=== PATIENT | female | born 1955 | race Caucasian/White ===

== ENCOUNTER 2016-11-10 10:57 | Emergency (ER) | payer MEDICARE, OTHER ==
[2016-11-10 11:10] VITALS: BP 132/72; PULSE 106; RESP 18; TEMP 98.1
[2016-11-10] MEDS ORDERED: predniSONE 20 MG TAB PO STA (11:33)
--- NOTE | 2016-11-10 11:35 | ED ---
General Adult HPI - General Chief complaint: ENT Stated complaint: ear pain Time Seen by Provider: 11/10/16 11:21 Source: patient, RN notes reviewed Mode of arrival: ambulatory Limitations: no limitations - History of Present Illness Initial comments: 60-year-old female presenting for sinus pressure. Patient also states she's had some episodes of disequilibrium where she felt dizzy. She denies any syncope or fall. States she's had chronic issues with her ears in the past with similar symptoms. She denies any rhinorrhea or sinus discharge. She has any fevers or chills. She denies any chest pain or shortness of breath. She is not tried any medications at this time. - Related Data Home Medications Medication Instructions Recorded Confirmed LORazepam [Ativan] 0.5 mg PO DAILY PRN 04/06/14 12/03/15 buPROPion [Wellbutrin] 100 mg PO BID 04/06/14 12/03/15 Amitriptyline HCl 25 mg PO HS 08/30/15 12/03/15 HYDROcodone/APAP 5-325MG [[place] 5] 1 - 2 tab PO Q4HR PRN 12/03/15 12/03/15 Ibuprofen [Motrin] 800 mg PO Q6H PRN 12/03/15 12/03/15 Levothyroxine Sodium [Synthroid] 175 mcg PO DAILY 12/03/15 12/03/15 Mirtazapine [Remeron] 30 mg PO HS 12/03/15 12/03/15 Previous Rx's Medication Instructions Recorded Albuterol Inhaler [Ventolin Hfa 2 puff INHALATION Q6HR PRN #1 10/05/14 Inhaler] inhaler traMADol HCl [Ultram] 50 mg PO Q6H PRN #0 09/05/15 Meclizine [Antivert] 25 - 50 mg PO Q6H PRN #20 tab 12/03/15 Methocarbamol [Robaxin-750] 750 mg PO Q6H PRN #20 tablet 12/03/15 predniSONE 40 mg PO DAILY #14 tab 11/10/16 Allergies Allergy/AdvReac Type Severity Reaction Status Date / Time atorvastatin calcium Allergy Swelling Verified 11/10/16 11:10 [From Lipitor] lidocaine HCl Allergy SKIN Verified 11/10/16 11:10 [From Xylocaine] SWELLS UP @ SITE- AREA PURPLE FOR WEEKS ? CANCER MED Allergy Anaphylaxis Uncoded 11/10/16 11:10 Review of Systems ROS Statement: Those systems with pertinent positive or pertinent negative responses have been documented in the HPI. ROS Other: All systems not noted in ROS Statement are negative. Past Medical History Past Medical History: Hyperlipidemia Additional Past Medical History / Comment(s): 09/04/15 Pt admitted to floor s/p R rotator cuff repair. Other HX: Migraines, C/O pain R shoulder C/O of back pain, has a rash under L breast. History of Any Multi-Drug Resistant Organisms: None Reported Additional Past Surgical History / Comment(s): 09/04/15 R rotator cuff repair. Other surgery: thyroidectomy, ovarian cyst, polyp removed from cervix. Past Psychological History: ADD/ADHD Additional Psychological History / Comment(s): Pt resides with spouse. She is independent. She uses no assistive device. She drives. Smoking Status: Never smoker Past Alcohol Use History: None Reported Past Drug Use History: None Reported General Exam - General Exam Comments Initial Comments: General: Awake and Alert. No acute distress. Does not appear acutely ill. Eyes: [place], EOM intact. No nystagmus. No scleral icterus. HENT: Atraumatic, normocephalic. Mucous membranes moist. Trachea midline. Neck: The neck is supple, there is no tenderness or JVD. Cardiovascular: Regular rate and rhythm. No murmur, rub, or gallop is appreciated. Distal pulses intact. Respiratory: Lungs are clear to auscultation bilaterally. No wheezes, rales, rhonchi. No respiratory distress. Gastrointestinal: Soft, Nontender. No rebound or guarding. Non-distended. No masses or organomegaly noted. No CVA tenderness. Musculoskeletal: No tenderness. Normal ROM. No gross deformity. No strength deficits. Neurological: A&Ox3. CN II-XII grossly intact, There are no obvious motor or sensory deficits. Coordination appears grossly intact. Speech is normal. Skin: Skin is warm and dry and no rashes or lesions are noted. Psychiatric: Cooperative, appropriate mood & affect, normal judgment. Limitations: no limitations Course Vital Signs 11/10/16 11:08 Temperature 98.1 F Pulse Rate 106 H Respiratory 18 Rate Blood Pressure 132/72 O2 Sat by Pulse 97 Oximetry Medical Decision Making - Medical Decision Making 60-year-old female presenting for sinus congestion and dizziness. She denies any nasal discharge or fevers. Exam is benign with no focal neurological deficits. Low suspicion of central vertigo or CVA as cause of symptoms at this time. Low suspicion of severe bacterial sinusitis. Discussed likely inflammatory changes given recent weather changes recurrent history of this. Patient was given a dose of steroid in the ER. Discussed trialing steroids over the next week as well. Discussed continuing [id number] medications as needed. Discussed follow-up with ENT and PCP. Patient is agreeable with plan and discharge home. Disposition Clinical Impression: Sinus pressure, Dizziness Disposition: HOME SELF-CARE Condition: Stable Instructions: Sinusitis (ED) Prescriptions: predniSONE 40 mg PO DAILY #14 tab Referrals: Balbina Baron MD [Primary Care Provider] - 1-2 days Time of Disposition: 11:35
== END 2016-11-10 11:46 | disposition home or self-care (01) ==
LOC: EC 10:57
DX: R42 Dizziness and giddiness (principal); J34.89 Other specified disorders of nose and nasal sinuses; H92.09 Otalgia, unspecified ear; F90.9 Attention-deficit hyperactivity disorder, unspecified type; Z79.899 Other long term (current) drug therapy; Z88.8 Allergy status to other drugs, medicaments and biological substances; Z88.4 Allergy status to anesthetic agent; Z90.89 Acquired absence of other organs
CPT/HCPCS: 99282; J7512

== ENCOUNTER 2017-10-05 17:15 | Emergency (ER) | payer MEDICARE, OTHER ==
[2017-10-05] MEDS ORDERED: GELATIN SPONGE,ABSORB (SMALL) 1 EACH SPONGE TOPICAL STA (17:51)
[2017-10-05 17:53] VITALS: BP 134/74; PULSE 88; RESP 20; TEMP 97.8
--- NOTE | 2017-10-05 18:08 | ED ---
Wound/Laceration HPI - General Chief Complaint: Wound/Laceration Stated Complaint: LAC RT THUMB Time Seen by Provider: 10/05/17 17:51 Source: patient, RN notes reviewed Mode of arrival: ambulatory Limitations: no limitations - History of Present Illness Initial Comments: This is a 61-year-old female who presents to the emergency department with chief complaint of finger laceration. Patient states that at 5 PM this evening she was using a kitchen mandolin. She lacerated the tip of her right thumb. Patient states she is unsure if she is up-to-date with her tetanus vaccination. She states that the bleeding has not stopped. Denies any other injury or trauma. Denies being on any blood thinners. Denies fever, chills, chest pain, shortness of breath, abdominal pain, nausea or vomiting, constipation or diarrhea, dysuria or hematuria, numbness or tingling, headache or vision changes. - Related Data Home Medications Medication Instructions Recorded Confirmed LORazepam [Ativan] 0.5 mg PO DAILY PRN 04/06/14 12/03/15 buPROPion [Wellbutrin] 100 mg PO BID 04/06/14 12/03/15 Amitriptyline HCl 25 mg PO HS 08/30/15 12/03/15 HYDROcodone/APAP 5-325MG [[place] 5] 1 - 2 tab PO Q4HR PRN 12/03/15 12/03/15 Ibuprofen [Motrin] 800 mg PO Q6H PRN 12/03/15 12/03/15 Levothyroxine Sodium [Synthroid] 175 mcg PO DAILY 12/03/15 12/03/15 Mirtazapine [Remeron] 30 mg PO HS 12/03/15 12/03/15 Previous Rx's Medication Instructions Recorded Albuterol Inhaler [Ventolin Hfa 2 puff INHALATION Q6HR PRN #1 10/05/14 Inhaler] inhaler traMADol HCl [Ultram] 50 mg PO Q6H PRN #0 09/05/15 Meclizine [Antivert] 25 - 50 mg PO Q6H PRN #20 tab 12/03/15 Methocarbamol [Robaxin-750] 750 mg PO Q6H PRN #20 tablet 12/03/15 predniSONE 40 mg PO DAILY #14 tab 11/10/16 Cephalexin [Keflex] 500 mg PO Q12HR #20 cap 10/05/17 Allergies Allergy/AdvReac Type Severity Reaction Status Date / Time atorvastatin calcium Allergy Swelling Verified 11/10/16 11:10 [From Lipitor] lidocaine HCl Allergy SKIN Verified 11/10/16 11:10 [From Xylocaine] SWELLS UP @ SITE- AREA PURPLE FOR WEEKS ? CANCER MED Allergy Anaphylaxis Uncoded 11/10/16 11:10 Review of Systems ROS Statement: Those systems with pertinent positive or pertinent negative responses have been documented in the HPI. ROS Other: All systems not noted in ROS Statement are negative. Past Medical History Past Medical History: Hyperlipidemia, Thyroid Disorder Additional Past Medical History / Comment(s): 09/04/15 Pt admitted to floor s/p R rotator cuff repair. Other HX: Migraines, C/O pain R shoulder C/O of back pain, has a rash under L breast. History of Any Multi-Drug Resistant Organisms: None Reported Additional Past Surgical History / Comment(s): 09/04/15 R rotator cuff repair. Other surgery: thyroidectomy, ovarian cyst, polyp removed from cervix. Past Psychological History: ADD/ADHD, Depression Smoking Status: Never smoker Past Alcohol Use History: None Reported Past Drug Use History: None Reported General Exam - General Exam Comments Initial Comments: General: Awake and alert, well-developed; in no apparent distress. HEENT: Head atraumatic, normocephalic. Pupils are equal, round and reactive to light. Extraocular movements intact. Oropharynx moist without erythema or exudate. Neck: Supple. Normal ROM. Cardiovascular: Regular rate and rhythm. No murmurs, rubs or gallops. Chest symmetrical. Respiratory: Lungs clear to auscultation bilaterally. No wheezes, rales or rhonchi. Normal respiratory effort with no use of accessory muscles. Musculoskeletal: Normal range of motion of the right thumb. There is an approximately 2.0 cm skin avulsion at the distal lateral edge of right thumb with involvement of tip of nail. Sensation is intact. Radial pulses are 2+ equal and palpable bilaterally. Skin: [place], warm and dry without rashes or lesions. Neurological: Alert and oriented x3. CN II-XII grossly intact. Speech is fluent and answers are appropriate. No focal neuro deficits. Psychiatric: Normal mood and affect. No overt signs of depression or anxiety noted. Limitations: no limitations Course Vital Signs 10/05/17 17:50 Temperature 97.8 F Pulse Rate 88 Respiratory 20 Rate Blood Pressure 134/74 O2 Sat by Pulse 95 Oximetry Medical Decision Making - Medical Decision Making This is a 61-year-old female who presents to the emergency department with chief complaint of right thumb laceration. There is an approximately 2.0 cm skin avulsion at distal lateral tip of right thumb without bone involvement. There is mild involvement of the tip of the fingernail without involvement of the nailbed. Gelfoam was placed and patient tolerated well without complication. A dressing was placed over the top. Recommended removal in 76 hours and she is to not get the dressing wet. Patient was made up-to-date with her tetanus vaccination. She will be given a prescription for Keflex. Patient is in no acute distress and will be discharged home. She is in agreement with plan and voices understanding. All questions were answered. Disposition Clinical Impression: Avulsion of skin of right thumb Disposition: HOME SELF-CARE Condition: Good Instructions: Skin Avulsion (ED) Additional Instructions: Please keep the Gelfoam in place for the next 76 hours. Please do not get the dressing wet. Please take medications as prescribed. Please follow up with primary care provider within 1-2 days. Return to emergency department if symptoms should worsen or any concerns arise. Prescriptions: Cephalexin [Keflex] 500 mg PO Q12HR #20 cap Referrals: Tiffanie Luciano MD [Primary Care Provider] - 1-2 days Time of Disposition: 19:30
[2017-10-05] MEDS ORDERED: DIPH,PERTUS(ACELL)TETVAC-LF 0.5 ML VIAL IM ONE (18:21)
== END 2017-10-05 19:21 | disposition home or self-care (01) ==
LOC: EC 17:15
DX: S61.111A Laceration without foreign body of right thumb with damage to nail, initial encounter (principal); E07.9 Disorder of thyroid, unspecified; F32.9 Major depressive disorder, single episode, unspecified; Z79.899 Other long term (current) drug therapy; Z88.8 Allergy status to other drugs, medicaments and biological substances; Z23 Encounter for immunization; Z88.4 Allergy status to anesthetic agent; W26.8XXA Contact with other sharp object(s), not elsewhere classified, initial encounter; Y93.89 Activity, other specified
CPT/HCPCS: 90471; 90715; 99282

== ENCOUNTER 2017-12-15 14:48 | Observation (INO) | payer MEDICARE, OTHER ==
[2017-12-15] MEDS ORDERED: ASPIRIN 81 MG PO STA (15:29)
--- NOTE | 2017-12-15 15:33 | ED ---
Chest Pain HPI - General Chief Complaint: Chest Pain Stated Complaint: Heart problems Time Seen by Provider: 12/15/17 15:07 Source: patient Mode of arrival: ambulatory Limitations: no limitations - History of Present Illness Initial Comments: Patient is a 62-year-old female who presents with a chief complaint of chest pain. This is been going on for 3 days. The patient describes a pressure sensation on the left side of her chest. Patient states that her pain is aggravated by exertion, alleviated with rest. Patient states she also has experienced some lightheadedness though she denies diaphoresis, nausea, or vomiting. The patient is a significant medical history of hypercholesterolemia and family history of MA on her father's side. Currently patient is chest pain- free. - Related Data Home Medications Medication Instructions Recorded Confirmed Levothyroxine Sodium [Synthroid] 150 mcg PO DAILY 12/15/17 12/15/17 Loratadine [Claritin] 10 mg PO DAILY PRN 12/15/17 12/15/17 Montelukast [Singulair] 10 mg PO HS 12/15/17 12/15/17 Rosuvastatin [Crestor] 20 mg PO HS 12/15/17 12/15/17 buPROPion HCL [Wellbutrin SR] 450 mg PO DAILY 12/15/17 12/15/17 cloNIDine HCL [Catapres] 0.1 mg PO BID 12/15/17 12/15/17 Allergies Allergy/AdvReac Type Severity Reaction Status Date / Time atorvastatin calcium Allergy Swelling Verified 12/15/17 15:39 [From Lipitor] lidocaine HCl Allergy SKIN Verified 12/15/17 15:39 [From Xylocaine] SWELLS UP @ SITE- AREA PURPLE FOR WEEKS ? CANCER MED Allergy Anaphylaxis Uncoded 11/10/16 11:10 Review of Systems ROS Statement: Those systems with pertinent positive or pertinent negative responses have been documented in the HPI. ROS Other: All systems not noted in ROS Statement are negative. Cardiovascular: Reports: chest pain, dyspnea on exertion Past Medical History Past Medical History: Hyperlipidemia, Thyroid Disorder Additional Past Medical History / Comment(s): 09/04/15 Pt admitted to floor s/p R rotator cuff repair. Other HX: Migraines, C/O pain R shoulder C/O of back pain, has a rash under L breast. History of Any Multi-Drug Resistant Organisms: None Reported Past Surgical History: Hysterectomy, Orthopedic Surgery Additional Past Surgical History / Comment(s): 09/04/15 R rotator cuff repair. Other surgery: thyroidectomy, ovarian cyst, polyp removed from cervix. Past Psychological History: ADD/ADHD, Depression Smoking Status: Never smoker Past Alcohol Use History: None Reported Past Drug Use History: None Reported General Exam Limitations: no limitations General appearance: alert, in no apparent distress Head exam: Present: atraumatic, normocephalic Eye exam: Present: normal appearance, PERRL ENT exam: Present: normal exam, mucous membranes moist Neck exam: Present: normal inspection Respiratory exam: Present: normal lung sounds bilaterally. Absent: respiratory distress, wheezes Cardiovascular Exam: Present: regular rate, normal rhythm GI/Abdominal exam: Present: soft. Absent: distended, tenderness Rectal exam: Present: deferred Extremities exam: Present: normal inspection Back exam: Present: normal inspection, full ROM Neurological exam: Present: alert, oriented X3 Psychiatric exam: Present: normal affect, normal mood Skin exam: Present: warm, dry, intact Course Vital Signs 12/15/17 12/15/17 14:59 15:50 Temperature 98.0 F Pulse Rate 87 Pulse Rate [ 86 Sitting] Pulse Rate [ 95 Standing] Pulse Rate [ 82 Supine] Respiratory 18 20 Rate Blood Pressure 127/65 Blood Pressure 131/86 [Sitting] Blood Pressure 121/84 [Standing] Blood Pressure 116/73 [Supine] O2 Sat by Pulse 97 Oximetry Chest Pain MDM - MDM Patient presents with a chief complaint of chest pain. Initial evaluation shows stable vital signs, patient and no distress. EKG performed at 1513 shows normal sinus rhythm rate of 85 bpm. EKG is otherwise unremarkable. Patient be evaluated with basic cardiac labs. Patient does not have a recent stress test. Given the atypical nature of the patient's pain, she will be admitted for a stress test. 6:21 PM Laboratory evaluation thus far is unremarkable however still pending first troponin. This case was discussed with Tamara Alaniz who accepts admission for observation and stress test under Dr. Terrell. Patient informed care plan, she is agreeable. Currently patient is chest pain-free. Disposition Referrals: Tiffanie Luciano MD [Primary Care Provider] - 1-2 days
[2017-12-15 16:01] LABS: Basophils % (A) 0 %; Eosinophils # (A) 0.1 k/uL (0-0.7); Eosinophils % (A) 2 %; HCT 44.1 % (34.0-46.0); Lymphocytes # (A) 1.2 k/uL (1.0-4.8); Lymphocytes % (A) 19 %; MCV 85.3 fL (80.0-100.0); Mean Platelet Volume 6.5; Monocytes # (A) 0.3 k/uL (0-1.0); Monocytes % (A) 4 %; Neutrophils # (A) 4.6 k/uL (1.3-7.7); Neutrophils % (A) 73 %; Platelet Count 226 k/uL (150-450); RBC 5.17 m/uL (3.80-5.40); WBC 6.3 k/uL (3.8-10.6)
[2017-12-15 16:05] LABS: Appearance,Urine Clear (Clear); Bacteria,Urine Rare /hpf; Bilirubin,Urine Negative (Negative); Blood,Urine Negative (Negative); Color,Urine Light Yellow; Glucose,Urine (UA) Negative (Negative); Ketones,Urine Negative (Negative); Leukocyte Esterase,Urine Small (Negative); Mucus,Urine Rare /hpf; Nitrite,Urine Negative (Negative); PH, Urine 5.5 (5.0-8.0); Protein,Urine Negative (Negative); RBC,Urine 1 /hpf (0-5); Specific Gravity,Urine 1.006 (1.001-1.035); Squamous Epithelial Cell,Urine 1 /hpf (0-4); Urobilinogen,Urine <2.0 mg/dL (<2.0); WBC,Urine 2 /hpf (0-5)
--- NOTE | 2017-12-15 16:07 | XR ---
EXAMINATION TYPE: XR chest 2V DATE OF EXAM: 12/15/2017 COMPARISON: 10/05/2014 HISTORY: 62-year-old female with chest pain and shortness of breath TECHNIQUE: AP and lateral views FINDINGS: Heart upper limits of normal in size. Mild diffuse interstitial prominence of a chronic appearance. L ow lung volumes. Strandy atelectasis lower lungs. No consolidation or pleural effusion seen. IMPRESSION: Hypoventilatory changes. Interstitial prominence appears largely chronic. No definite acute process.
[2017-12-15 16:26] LABS: Albumin 4.3 g/dL (3.5-5.0); Calcium 9.6 mg/dL (8.4-10.2); Total Bilirubin 0.5 mg/dL (0.2-1.3); Total Protein 6.9 g/dL (6.3-8.2)
[2017-12-15] MEDS ORDERED: NALOXONE 0.4 MG/ML 1 ML VIAL IV PRN (18:15)
[2017-12-15 21:41] VITALS: RESP 16
[2017-12-15] MEDS ORDERED: LORATADINE 10 MG TAB PO PRN (22:22)
[2017-12-15] MEDS ORDERED: MONTELUKAST 10 MG TAB PO SCH (22:30)
[2017-12-15] MEDS: cloNIDine HCL 0.1 MG TAB PO SCH (23:09)
[2017-12-15] MEDS: ACETAMINOPHEN TAB 325 MG TAB PO PRN (23:12)
[2017-12-16] MEDS ORDERED: LEVOTHYROXINE 75 MCG TAB PO SCH (06:00)
[2017-12-16] MEDS: ACETAMINOPHEN TAB 325 MG TAB PO PRN ×2 (06:52→11:45)
--- NOTE | 2017-12-16 07:54 | P.CRDCN ---
History of Present Illness Consult date: 12/16/17 Chief complaint: Dizziness and lightheadedness History of present illness: This is a pleasant 62-year-old female patient was no documented history of coronary artery disease who was admitted to the hospital was dizziness and lightheadedness. She was in her usual state of health until yesterday when she started feeling dizzy and lightheaded. No loss of consciousness. She did not have any symptoms of chest pain or chest discomfort , exertional dyspnea, orthopnea, or PND. The EKG showed sinus rhythm without any significant ST or T-wave abnormalities but with some nonspecific changes inferiorly. The cardiac enzymes were checked and came in to be unremarkable. The chest x-ray did not show any acute abnormalities. The patient underwent a Lexiscan Cardiolite stress test back in 2015 and that came in to be unremarkable. She continues to be pain-free during her hospitalization. As a matter of fact she denies having any chest pain or chest discomfort whatsoever. Past Medical History Past Medical History: Hyperlipidemia, Osteoarthritis (OA), Thyroid Disorder Additional Past Medical History / Comment(s): Migraines,ever since thyroid sx will get sob w/extreme changes in weather. agoraphobia History of Any Multi-Drug Resistant Organisms: None Reported Past Surgical History: Adenoidectomy, Hysterectomy, Orthopedic Surgery, Tonsillectomy Additional Past Surgical History / Comment(s): 09/04/15 R rotator cuff repair. Other surgery: thyroidectomy, ovarian cyst, polyp removed from cervix-benign hysterectomy/cystocele repair, ear surgeries at ages [age], 32's.[place] Past Anesthesia/Blood Transfusion Reactions: No Reported Reaction Smoking Status: Never smoker - Past Family History Father Family Medical History: Myocardial Infarction ([place]) Additional Family Medical History / Comment(s): fathers side of family had cardiac problems Mother Family Medical History: Cancer Additional Family Medical History / Comment(s): kidney cancer Medications and Allergies Home Medications Medication Instructions Recorded Confirmed Type Levothyroxine Sodium [Synthroid] 150 mcg PO DAILY 12/15/17 12/15/17 History Loratadine [Claritin] 10 mg PO DAILY PRN 12/15/17 12/15/17 History Montelukast [Singulair] 10 mg PO HS 12/15/17 12/15/17 History Rosuvastatin [Crestor] 20 mg PO HS 12/15/17 12/15/17 History buPROPion HCL [Wellbutrin SR] 450 mg PO DAILY 12/15/17 12/15/17 History cloNIDine HCL [Catapres] 0.1 mg PO BID 12/15/17 12/15/17 History Allergies Allergy/AdvReac Type Severity Reaction Status Date / Time atorvastatin calcium Allergy Swelling Verified 12/15/17 15:39 [From Lipitor] lidocaine HCl Allergy SKIN Verified 12/15/17 15:39 [From Xylocaine] SWELLS UP @ SITE- AREA PURPLE FOR WEEKS ? CANCER MED Allergy Anaphylaxis Uncoded 11/10/16 11:10 Physical Exam Vitals: Vital Signs Temp Pulse Pulse Pulse Pulse Pulse Resp 12/16/17 03:53 16 12/16/17 03:37 97.7 F 68 16 12/16/17 00:00 16 12/15/17 23:33 98.2 F 92 16 12/15/17 21:40 97.7 F 82 16 12/15/17 21:12 98.3 F 85 18 12/15/17 20:00 98.3 F 83 20 12/15/17 18:30 82 20 12/15/17 16:01 90 20 12/15/17 15:50 86 95 82 20 12/15/17 14:59 98.0 F 87 18 BP BP BP BP BP Pulse Ox 12/16/17 03:53 12/16/17 03:37 101/61 98 12/16/17 00:00 12/15/17 23:33 104/74 96 12/15/17 21:40 130/78 98 12/15/17 21:12 123/56 96 12/15/17 20:00 126/56 98 12/15/17 18:30 146/56 99 12/15/17 16:01 121/74 12/15/17 15:50 131/86 121/84 116/73 12/15/17 14:59 127/65 97 Intake and Output 12/15/17 12/16/17 12/16/17 22:59 06:59 14:59 Other: Voiding Method Toilet # Voids 1 - Constitutional General appearance: no acute distress - Respiratory Respiratory: bilateral: CTA - Cardiovascular Rhythm: regular Heart sounds: normal: S1, S2 Results 12/15/17 15:50 12/15/17 15:50 Cardiac Enzymes 12/15/17 12/15/17 12/16/17 Range/Units 15:50 18:30 00:11 AST 27 (14-36) U/L Troponin I <0.012 <0.012 (0.000-0.034) ng/mL CBC 12/15/17 Range/Units 15:50 WBC 6.3 (3.8-10.6) k/uL RBC 5.17 (3.80-5.40) m/uL Hgb 15.0 (11.4-16.0) gm/dL Hct 44.1 (34.0-46.0) % Plt Count 226 (150-450) k/uL Comprehensive Metabolic Panel 12/15/17 Range/Units 15:50 Sodium 144 (137-145) mmol/L Potassium 4.0 (3.5-5.1) mmol/L Chloride 106 (98-107) mmol/L Carbon Dioxide 24 (22-30) mmol/L BUN 13 (7-17) mg/dL Creatinine 0.90 (0.52-1.04) mg/dL Glucose 103 H (74-99) mg/dL Calcium 9.6 (8.4-10.2) mg/dL AST 27 (14-36) U/L ALT 47 (9-52) U/L Alkaline Phosphatase 80 (38-126) U/L Total Protein 6.9 (6.3-8.2) g/dL Albumin 4.3 (3.5-5.0) g/dL Current Medications Generic Name Dose Route Start Last Admin Trade Name Freq PRN Reason Stop Dose Admin Acetaminophen 650 mg 12/15/17 22:22 12/16/17 06:52 Tylenol Tab PO 650 mg Q6HR PRN Administration Fever and/ or Pain Bupropion HCl 450 mg 12/16/17 09:00 Wellbutrin Sr PO DAILY MAX Clonidine 0.1 mg 12/15/17 23:00 12/15/17 23:09 Catapres PO Not Given BID MAX Levothyroxine Sodium 150 mcg 12/16/17 06:00 12/16/17 06:50 Synthroid PO 150 mcg DAILY@0600 MAX Administration Loratadine 10 mg 12/15/17 22:22 Claritin PO DAILY PRN Allergy Symptoms Montelukast Sodium 10 mg 12/15/17 22:30 12/15/17 23:12 Singulair PO 10 mg HS MAX Administration Naloxone HCl 0.2 mg 12/15/17 18:15 Narcan IV Q2M PRN Opioid Reversal Rosuvastatin 20 Mg 20 mg 12/15/17 22:30 12/16/17 01:25 PO Not Given HS MAX Intake and Output 12/15/17 12/16/17 12/16/17 22:59 06:59 14:59 Other: Voiding Method Toilet # Voids 1 12/15/17 15:50 12/15/17 15:50 Assessment and Plan Assessment: Assessment #1 dizziness and lightheadedness #2 dyslipidemia Plan #1 I would get the patient up and around. If she is asymptomatic. She might be able to be discharged home. #2 she was ruled out for acute coronary event. More importantly she did not have any chest pain or chest discomfort. Thank you for allowing us participate in her care.
[2017-12-16] MEDS ORDERED: buPROPion SR 150 MG TABLET.ER PO SCH (09:00)
[2017-12-16] MEDS: cloNIDine HCL 0.1 MG TAB PO SCH ×2 (09:27→09:29)
[2017-12-16 12:11] VITALS: BP 110/66; TEMP 98
[2017-12-16 12:16] VITALS: PULSE 77
--- NOTE | 2017-12-16 12:35 | ECHOF ---
Referral Reason:chest pain MEASUREMENTS -------- HEIGHT: 162.6 cm WEIGHT: 90.7 kg BP: 118/67 IVSd: 1.1 cm (0.6 - 1.1) LVIDd: 4.6 cm (3.9 - 5.3) LVPWd: 1.1 cm (0.6 - 1.1) IVSs: 1.5 cm LVIDs: 2.5 cm LVPWs: 1.5 cm LA Diam: 2.9 cm (2.7 - 3.8) Ao Diam: 3.1 cm (2.0 - 3.7) AV Cusp: 2.2 cm (1.5 - 2.6) LA Diam: 3.5 cm (2.7 - 3.8) MV EXCURSION: 12.842 mm (> 18.000) MV EF SLOPE: 99 mm/s (70 - 150) EPSS: 0.2 cm MV E Javier: 0.58 m/s MV DecT: 258 ms MV A Javier: 0.64 m/s MV E/A Ratio: 0.91 RAP: 5.00 mmHg RVSP: 11.77 mmHg FINDINGS -------- Sinus rhythm. The left ventricular size is normal. There is mild concentric left ventricular hypertrophy. Overa ll left ventricular systolic function is low-normal with, an EF between 50 - 55 %. The right ventricle is normal in size. The left atrial size is normal. The right atrial size is normal. 5.0mg OF [place] UTLIZED: 2 OR MORE WALL SEGMENTS NOT VISUALIZED. There is mild aortic valve sclerosis. There is no evidence of aortic regurgitation. Mild mitral annular calcification present. Mild mitral regurgitation is present. Mild tricuspid regurgitation present. There is no evidence of pulmonary hypertension. The right v entricular systolic pressure, as measured by Doppler, is 11.77mmHg. There is no pulmonic regurgitation present. The aortic root size is normal. There is no pericardial effusion. CONCLUSIONS -------- 1. The left ventricular size is normal. 2. There is mild concentric left ventricular hypertrophy. 3. Overall left ventricular systolic function is low-normal with, an EF between 50 - 55 %. 4. The left atrial size is normal. 5. 5.0mg OF [place] UTLIZED: 2 OR MORE WALL SEGMENTS NOT VISUALIZED. 6. There is mild aortic valve sclerosis. 7. Mild mitral annular calcification present. 8. Mild mitral regurgitation is present. 9. Mild tricuspid regurgitation present. 10. There is no evidence of pulmonary hypertension. 11. The right ventricular systolic pressure, as measured by Doppler, is 11.77mmHg. 12. There is no pulmonic regurgitation present. 13. The aortic root size is normal. 14. There is no pericardial effusion. [employer] MERCHANDISER: Annie Hyde RDCS
--- NOTE | 2017-12-16 15:13 | HP ---
HISTORY AND PHYSICAL HISTORY AND PHYSICAL/DISCHARGE SUMMARY: DATE OF SERVICE: 12/16/2017 CHIEF COMPLAINT: Shortness of breath, dizziness and lightheadedness. HISTORY OF PRESENT ILLNESS: This is a 62-year-old woman with a past medical history of hyperlipidemia, DJD, hypothyroidism, being followed by the [facility] and Dr. Luciano in the outpatient setting, was complaining of dizziness, shortness of breath and lightheadedness for the last several days because of increasing difficulties with multiple medications, patient came to [facility] and admitted for further evaluation and treatment. Troponins are negative at this time. D-dimer is also negative. A 2D echo showed normal ejection fraction. Cardiology recommended outpatient followup at this time. There is no history of fever or any rigors. No history of headache, loss of consciousness, or seizures. The patient is complaining of vague chest pains also. PAST MEDICAL HISTORY: History of hypertension, hyperlipidemia, DJD, migraines. MEDICATIONS PRIOR TO ADMISSION INCLUDE: 1. Crestor 20 mg q.h.s. 2. Singular 10 mg q.h.s. 3. Claritin 10 mg daily p.r.n. 4. Catapres 0.1 b.i.d. 5. Wellbutrin XR 450 mg b.i.d. 6. Synthroid 150 mcg p.o. daily. ALLERGIES: LIPITOR, XYLOCAINE, CANCER MEDICATION. FAMILY HISTORY: History of myocardial infarction in the family. SOCIAL HISTORY: No history of smoking, no history of alcohol intake. REVIEW OF SYSTEMS: ENT: No diminished hearing or diminished vision. CARDIOVASCULAR SYSTEM: As mentioned earlier. RESPIRATORY: As mentioned earlier. GI: No nausea. : No dysuria. NERVOUS SYSTEM: No numbness or weakness. ALLERGY/IMMUNOLOGY: No asthma or hayfever. MUSCULOSKELETAL: As mentioned earlier. RHEUMATOLOGY: As mentioned earlier. ENDOCRINE: As mentioned earlier. CONSTITUTIONAL: As mentioned earlier. DERMATOLOGY: Negative. PSYCHIATRY: As mentioned earlier. PHYSICAL EXAMINATION: Patient is alert and oriented x3. Pulse 84, blood pressure 110/66, respirations 16, temperature 98 degrees, pulse ox 96% on room air. HEENT: Conjunctivae normal. Oral mucosa moist. Neck is no jugular venous distention. No thyroid enlargement. No carotid bruit. No lymph node enlargement. CARDIOVASCULAR SYSTEM: S1, S2, muffled, no S3, no S4. RESPIRATORY: Breath sounds diminished at the bases. No rhonchi. No crackles. ABDOMEN: Soft, nontender. No mass palpable. LEGS: No edema, no swelling. NERVOUS SYSTEM: Higher functions as mentioned earlier. Moves all four limbs. No focal motor deficits. LYMPHATICS: No lymph node enlargement in the neck or axillae. SKIN: No ulcer, rash, or bleeding. LABS: CBC within normal limits. D-dimer is normal. Glucose . Troponins are negative. A 2D echo normal. ASSESSMENT: 1. Dizziness and lightheadedness for evaluation. 2. Myocardial infarction ruled out. 3. History of hyperlipidemia. 4. History of degenerative joint disease. 5. History of hypothyroidism. 6. History of migraine. 7. History of adenoidectomy. 8. History of ADD, ADHD. .. 9. History of depression. RECOMMENDATION AND DISCUSSION: In this 62-year-old woman who presented with multiple medical problems, will monitor the patient closely. I would recommend the patient to be discharged and monitor closely in the outpatient setting including evaluation including outpatient possible stress test. Follow with Cardiology closely. Otherwise, overall prognosis guarded because of the multiple medical issues. Further recommendations to follow. Once again, the patient will be discharged in a stable condition with guarded prognosis. MMODL / IJN: [id number] /
== END 2017-12-16 14:07 | disposition home or self-care (01) ==
LOC: EC 14:48 → 3OBS 18:15
PROVIDERS: ADMIT Hospitalist; ATTEND Hospitalist
DX: R42 Dizziness and giddiness (principal); R06.02 Shortness of breath; R07.89 Other chest pain; E78.5 Hyperlipidemia, unspecified; E89.0 Postprocedural hypothyroidism; M19.90 Unspecified osteoarthritis, unspecified site; G43.909 Migraine, unspecified, not intractable, without status migrainosus; F90.9 Attention-deficit hyperactivity disorder, unspecified type; F32.9 Major depressive disorder, single episode, unspecified; F40.00 Agoraphobia, unspecified; Z79.890 Hormone replacement therapy; Z79.899 Other long term (current) drug therapy; Z88.4 Allergy status to anesthetic agent; Z88.8 Allergy status to other drugs, medicaments and biological substances; Z80.51 Family history of malignant neoplasm of kidney; Z82.49 Family history of ischemic heart disease and other diseases of the circulatory system
CPT/HCPCS: 99285 ×2; 36415; 85379; 83880; 80053; 83690; 84484 ×2; 85025; 81001; 71046; G0378 ×2; C8929; S0106; Q9950; 93306

== ENCOUNTER 2019-03-14 17:43 | Emergency (ER) | payer MEDICARE, OTHER ==
[2019-03-14 18:26] VITALS: BP 118/69; PULSE 92; RESP 18; TEMP 98.8
[2019-03-14] MEDS ORDERED: methylPREDNISolone SOD SUCCI 125 MG/2 ML VIAL IM ONE (19:23)
--- NOTE | 2019-03-14 19:31 | ED ---
Skin/Abscess/FB HPI - General Chief complaint: Skin/Abscess/Foreign Body Stated complaint: rash Time Seen by Provider: 03/14/19 18:56 Source: patient Mode of arrival: ambulatory Limitations: no limitations - History of Present Illness Initial comments: Patient is a 63-year-old female presenting to the emergency Department with complaints of a rash on her arms since yesterday. Patient states the rash is very itchy and is located in the left antecubital fossa area, right forearm area and one spot on her left ankle. Patient denies any pain in the areas. Patient denies any fever, chills. Patient states no one else around her has similar rash. Patient does admit to history of breaking out in a rash with high stress situations. Patient states this looks a little bit different though. No other complaints at this time. Vital signs are stable upon arrival, afebrile. - Related Data Home Medications Medication Instructions Recorded Confirmed Levothyroxine Sodium [Synthroid] 150 mcg PO DAILY 12/15/17 12/15/17 Loratadine [Claritin] 10 mg PO DAILY PRN 12/15/17 12/15/17 Montelukast [Singulair] 10 mg PO HS 12/15/17 12/15/17 Rosuvastatin [Crestor] 20 mg PO HS 12/15/17 12/15/17 buPROPion HCL [Wellbutrin SR] 450 mg PO DAILY 12/15/17 12/15/17 cloNIDine HCL [Catapres] 0.1 mg PO BID 12/15/17 12/15/17 Previous Rx's Medication Instructions Recorded Hydrocortisone Cream 1 applic TOPICAL BID 5 Days #1 tube 03/14/19 [Hydrocortisone 2.5% Cream] predniSONE 1 mg PO BID 5 Days #10 tab 03/14/19 Allergies Allergy/AdvReac Type Severity Reaction Status Date / Time atorvastatin calcium Allergy Swelling Verified 12/15/17 15:39 [From Lipitor] lidocaine HCl Allergy SKIN Verified 12/15/17 15:39 [From Xylocaine] SWELLS UP @ SITE- AREA PURPLE FOR WEEKS ? CANCER MED Allergy Anaphylaxis Uncoded 11/10/16 11:10 Review of Systems ROS Statement: Those systems with pertinent positive or pertinent negative responses have been documented in the HPI. ROS Other: All systems not noted in ROS Statement are negative. Past Medical History Past Medical History: Hyperlipidemia, Thyroid Disorder Additional Past Medical History / Comment(s): Other HX: Migraine History of Any Multi-Drug Resistant Organisms: None Reported Past Surgical History: Hysterectomy, Orthopedic Surgery Additional Past Surgical History / Comment(s): 09/04/15 R rotator cuff repair. Other surgery: thyroidectomy, ovarian cyst, polyp removed from cervix. Past Anesthesia/Blood Transfusion Reactions: No Reported Reaction Past Psychological History: ADD/ADHD, Depression Smoking Status: Never smoker Past Alcohol Use History: None Reported Past Drug Use History: None Reported - Past Family History Father Family Medical History: Myocardial Infarction ([place]) Additional Family Medical History / Comment(s): fathers side of family had cardiac problems Mother Family Medical History: Cancer Additional Family Medical History / Comment(s): kidney cancer General Exam - General Exam Comments Initial Comments: GENERAL: Well-appearing, well-nourished and in no acute distress. HEAD: Atraumatic, normocephalic. EYES: Pupils equal round and reactive to light, extraocular movements intact, sclera anicteric, conjunctiva are normal. ENT: TMs normal, nares patent, oropharynx clear without exudates. Moist mucous membranes. NECK: Normal range of motion, supple without lymphadenopathy or JVD. LUNGS: Breath sounds clear to auscultation bilaterally and equal. No wheezes rales or rhonchi. HEART: Regular rate and rhythm without murmurs, rubs or gallops. ABDOMEN: Soft, nontender, normoactive bowel sounds. No guarding, no rebound. No masses appreciated. : Deferred EXTREMITIES: Normal range of motion, no pitting or edema. No clubbing or cyanosis. NEUROLOGICAL: Cranial nerves II through XII grossly intact. Normal speech, normal gait. PSYCH: Normal mood, normal affect. Limitations: no limitations Skin exam: Present: warm, dry, intact, rash. Absent: diaphoretic, erythema Expanded Type of lesion: Present: rash Distribution of rash: RUE (Forearm), LUE (Antecubital fossa area) Description of rash: Present: macular, papular, vesicular, blisters. Absent: crusting, discharge, fluctuant Course Vital Signs 03/14/19 18:23 Temperature 98.8 F Pulse Rate 92 Respiratory 18 Rate Blood Pressure 118/69 O2 Sat by Pulse 94 L Oximetry Medical Decision Making - Medical Decision Making Patient is a 63-year-old female presenting with a rash on her left and right arms. Patient denies any recent fever, chills. Vital signs are stable, afebrile. On exam patient has a macule papular, vesicular rash on the left antecubital fossa area as well as the right forearm. Patient states it is very pruritic. It appears to be some sort of contact dermatitis. Patient will be given shot of steroids before discharge. At this time patient is stable for discharge. Patient will be sent home with topical steroid cream as well as a short course of oral steroids. Patient can also take Benadryl at night to help with itching. Patient is in agreement with this plan of care. Return parameters were discussed with the patient she verbalized understanding. Case discussed with Dr. Zamudio. Disposition Clinical Impression: Contact dermatitis Disposition: HOME SELF-CARE Condition: Stable Instructions (If sedation given, give patient instructions): Contact Dermatitis (ED) Additional Instructions: Please return to the Emergency Department if symptoms worsen or any other concerns. Prescriptions: Hydrocortisone Cream [Hydrocortisone 2.5% Cream] 1 applic TOPICAL BID 5 Days #1 tube predniSONE 1 mg PO BID 5 Days #10 tab Is patient prescribed a controlled substance at d/c from ED?: No Referrals: [facility] [Primary Care Provider] - 1-2 days
== END 2019-03-14 19:39 | disposition home or self-care (01) ==
LOC: EC 17:43
DX: L25.9 Unspecified contact dermatitis, unspecified cause (principal); E78.5 Hyperlipidemia, unspecified; E07.9 Disorder of thyroid, unspecified; F32.9 Major depressive disorder, single episode, unspecified; Z79.890 Hormone replacement therapy; Z79.899 Other long term (current) drug therapy; Z88.8 Allergy status to other drugs, medicaments and biological substances; Z88.4 Allergy status to anesthetic agent
CPT/HCPCS: 99282; 96372; J2930

== ENCOUNTER 2019-03-26 12:28 | Emergency (ER) | payer MEDICARE, OTHER ==
[2019-03-26 12:41] VITALS: BP 121/77; PULSE 89; RESP 18; TEMP 98.1
--- NOTE | 2019-03-26 13:50 | ED ---
General Adult HPI - General Chief complaint: Skin/Abscess/Foreign Body Stated complaint: Rash Time Seen by Provider: 03/26/19 13:02 Source: patient, RN notes reviewed Mode of arrival: ambulatory Limitations: no limitations - History of Present Illness Initial comments: 63 year old female with a past medical history of hyperlipidemia, thyroid disorder, migraines presents for rash. This rash has been ongoing for the past 2 weeks. States he was on the left and right forearm he states it is pruritic in nature. Denies rash anywhere else on the body. Denies fevers or chills. Denies any recent travel. Denies any new detergents or working outside with plants or [employer]. Patient states she was given steroids which did help however came back worse. Patient has not tried to follow up with her primary care provider or dermatology.Patient has no other complaints at this time including shortness of breath, chest pain, abdominal pain, nausea or vomiting, headache, or visual changes. - Related Data Home Medications Medication Instructions Recorded Confirmed Levothyroxine Sodium [Synthroid] 150 mcg PO DAILY 12/15/17 12/15/17 Loratadine [Claritin] 10 mg PO DAILY PRN 12/15/17 12/15/17 Montelukast [Singulair] 10 mg PO HS 12/15/17 12/15/17 Rosuvastatin [Crestor] 20 mg PO HS 12/15/17 12/15/17 buPROPion HCL [Wellbutrin SR] 450 mg PO DAILY 12/15/17 12/15/17 cloNIDine HCL [Catapres] 0.1 mg PO BID 12/15/17 12/15/17 Previous Rx's Medication Instructions Recorded Hydrocortisone Cream 1 applic TOPICAL BID 5 Days #1 tube 03/14/19 [Hydrocortisone 2.5% Cream] predniSONE 1 mg PO BID 5 Days #10 tab 03/14/19 predniSONE 50 mg PO DAILY #5 tablet 03/26/19 Allergies Allergy/AdvReac Type Severity Reaction Status Date / Time atorvastatin calcium Allergy Swelling Verified 03/26/19 12:41 [From Lipitor] lidocaine HCl Allergy SKIN Verified 03/26/19 12:41 [From Xylocaine] SWELLS UP @ SITE- AREA PURPLE FOR WEEKS ? CANCER MED Allergy Anaphylaxis Uncoded 03/26/19 12:41 Review of Systems ROS Statement: Those systems with pertinent positive or pertinent negative responses have been documented in the HPI. ROS Other: All systems not noted in ROS Statement are negative. Past Medical History Past Medical History: Hyperlipidemia, Thyroid Disorder Additional Past Medical History / Comment(s): Other HX: Migraine History of Any Multi-Drug Resistant Organisms: None Reported Past Surgical History: Hysterectomy, Orthopedic Surgery Additional Past Surgical History / Comment(s): 09/04/15 R rotator cuff repair. Other surgery: thyroidectomy, ovarian cyst, polyp removed from cervix. Past Anesthesia/Blood Transfusion Reactions: No Reported Reaction Past Psychological History: ADD/ADHD, Depression Smoking Status: Never smoker Past Alcohol Use History: None Reported Past Drug Use History: None Reported - Past Family History Father Family Medical History: Myocardial Infarction ([place]) Additional Family Medical History / Comment(s): fathers side of family had cardiac problems Mother Family Medical History: Cancer Additional Family Medical History / Comment(s): kidney cancer General Exam Limitations: no limitations General appearance: alert, in no apparent distress Head exam: Present: atraumatic, normocephalic, normal inspection Eye exam: Present: normal appearance, PERRL, EOMI. Absent: scleral icterus, conjunctival injection, periorbital swelling ENT exam: Present: normal exam, mucous membranes moist Neck exam: Present: normal inspection, full ROM. Absent: tenderness, meningismus, lymphadenopathy Respiratory exam: Present: normal lung sounds bilaterally. Absent: respiratory distress, wheezes, rales, rhonchi, stridor Cardiovascular Exam: Present: regular rate, normal rhythm, normal heart sounds. Absent: systolic murmur, diastolic murmur, rubs, gallop, clicks Extremities exam: Present: other (Erythematous flat macular coalescent rash noted to the left inner forearm. There is also a small patch noted on the right forearm. No spreading redness or evidence of infection. No increased warmth noted to this area. Negative Nikolsky sign. No sloughing or peeling of skin. No mucous membrane lesions or lesions on the palms or soles.) Neurological exam: Present: alert Psychiatric exam: Present: normal affect, normal mood Course Vital Signs 03/26/19 12:38 Temperature 98.1 F Pulse Rate 89 Respiratory 18 Rate Blood Pressure 121/77 O2 Sat by Pulse 96 Oximetry Medical Decision Making - Medical Decision Making 63-year-old female presents to the emergency department for chief complaint of rash 2 weeks. There is rash on the left inner forearm and also somewhat on the right forearm. This is erythematous and macular in nature. Somewhat coalescent. It does not appear to be a cellulitis or infectious. No lesions on the mucous membranes or palms/soles. Patient states that steroids significantly help the rash but once the course was completed at the rash returned. Patient has not followed up with dermatology or primary care. At this time I will reduce patient was steroids as this does appear to be more of an atopic dermatitis given the location and nature of rash. However I did strongly recommend filling up with dermatology and primary care. Patient does agree to this. She will return if she has any worsening symptoms. Disposition Clinical Impression: Rash Disposition: HOME SELF-CARE Condition: Good Instructions (If sedation given, give patient instructions): Acute Rash (ED) Additional Instructions: Please take steroid as directed. Please follow-up with primary care and dermatology in 1-2 days. Return to the emergency department if you have any worsening symptoms. Prescriptions: predniSONE 50 mg PO DAILY #5 tablet Is patient prescribed a controlled substance at d/c from ED?: No Referrals: [facility] [Primary Care Provider] - 1-2 days Darya Smith MD [STAFF PHYSICIAN] - 1-2 days Vasquez Chapa MD [STAFF PHYSICIAN] - 1-2 days Time of Disposition: 13:49
== END 2019-03-26 14:05 | disposition home or self-care (01) ==
LOC: EC 12:28
DX: R21 Rash and other nonspecific skin eruption (principal); E78.5 Hyperlipidemia, unspecified; E07.9 Disorder of thyroid, unspecified; F32.9 Major depressive disorder, single episode, unspecified; F90.9 Attention-deficit hyperactivity disorder, unspecified type; Z79.890 Hormone replacement therapy; Z79.899 Other long term (current) drug therapy; Z88.8 Allergy status to other drugs, medicaments and biological substances; Z88.4 Allergy status to anesthetic agent
CPT/HCPCS: 99282

== ENCOUNTER 2019-06-14 11:39 | Emergency (ER) | payer MEDICARE, OTHER ==
[2019-06-14 11:45] VITALS: BP 109/44; PULSE 75; RESP 18; TEMP 97.3
[2019-06-14] MEDS ORDERED: KETOROLAC 60 MG/2 ML VIAL IM STA (11:54)
--- NOTE | 2019-06-14 12:14 | XR ---
EXAMINATION TYPE: XR wrist complete LT DATE OF EXAM: 06/14/2019 CLINICAL HISTORY: Posterior pain. TECHNIQUE: Frontal, lateral, scaphoid, and oblique images of the left wrist are obtained. COMPARISON: Left wrist x-ray December 09, 2012. FINDINGS: There is no acute fracture/dislocation evident in the left wrist. Advanced degenerative ch anges base of first metacarpal with narrowing and subchondral cystic changes redemonstrated. There is radiocarpal joint space loss again seen. The overlying soft tissue appears unremarkable. IMPRESSION: As above. No significant change from 2013 study
--- NOTE | 2019-06-14 12:18 | ED ---
Extremity Problem HPI - General Chief complaint: Extremity Problem,Nontraumatic Stated complaint: Wrist pain Time Seen by Provider: 06/14/19 11:43 Source: patient Mode of arrival: ambulatory Limitations: no limitations - History of Present Illness Initial comments: 63-year-old female presenting to emergency department today for chief complaint of left wrist pain. Patient states that she has had left wrist pain for 2 days. She states that increases with twisting motions. Patient denies a specific alleviating factors. She states there is pain at rest but somewhat better. She denies soft tissue swelling, rashes bruising, deformity numbness tingling loss sensation. Patient denies any other complaints or areas of tenderness. Remaining review of system negative - Related Data Home Medications Medication Instructions Recorded Confirmed Levothyroxine Sodium [Synthroid] 150 mcg PO DAILY 12/15/17 12/15/17 Loratadine [Claritin] 10 mg PO DAILY PRN 12/15/17 12/15/17 Montelukast [Singulair] 10 mg PO HS 12/15/17 12/15/17 Rosuvastatin [Crestor] 20 mg PO HS 12/15/17 12/15/17 buPROPion HCL [Wellbutrin SR] 450 mg PO DAILY 12/15/17 12/15/17 cloNIDine HCL [Catapres] 0.1 mg PO BID 12/15/17 12/15/17 Previous Rx's Medication Instructions Recorded Hydrocortisone Cream 1 applic TOPICAL BID 5 Days #1 tube 03/14/19 [Hydrocortisone 2.5% Cream] predniSONE 1 mg PO BID 5 Days #10 tab 03/14/19 predniSONE 50 mg PO DAILY #5 tablet 03/26/19 Allergies Allergy/AdvReac Type Severity Reaction Status Date / Time atorvastatin calcium Allergy Swelling Verified 06/14/19 11:42 [From Lipitor] lidocaine HCl Allergy SKIN Verified 06/14/19 11:42 [From Xylocaine] SWELLS UP @ SITE- AREA PURPLE FOR WEEKS ? CANCER MED Allergy Anaphylaxis Uncoded 06/14/19 11:42 Review of Systems ROS Statement: Those systems with pertinent positive or pertinent negative responses have been documented in the HPI. ROS Other: All systems not noted in ROS Statement are negative. Past Medical History Past Medical History: Hyperlipidemia, Thyroid Disorder Additional Past Medical History / Comment(s): Other HX: Migraine History of Any Multi-Drug Resistant Organisms: None Reported Past Surgical History: Hysterectomy, Orthopedic Surgery Additional Past Surgical History / Comment(s): 09/04/15 R rotator cuff repair. Other surgery: thyroidectomy, ovarian cyst, polyp removed from cervix. Past Anesthesia/Blood Transfusion Reactions: No Reported Reaction Past Psychological History: ADD/ADHD, Depression Smoking Status: Never smoker Past Alcohol Use History: None Reported Past Drug Use History: None Reported - Past Family History Father Family Medical History: Myocardial Infarction ([place]) Additional Family Medical History / Comment(s): fathers side of family had cardiac problems Mother Family Medical History: Cancer Additional Family Medical History / Comment(s): kidney cancer General Exam - General Exam Comments Initial Comments: General: The patient is awake and alert, in no distress, and does not appear acutely ill. Eye: Pupils are equal, round and reactive to light, extra-ocular movements are intact. No nystagmus. There is normal conjunctiva bilaterally. No signs of icterus. Cardiovascular: There is a regular rate and rhythm. No murmur, rub or gallop is appreciated. Respiratory: Lungs are clear to auscultation, respirations are non-labored, breath sounds are equal. No wheezes, stridor, rales, or rhonchi. Musculoskeletal: No abnormalities on gross inspection of soft tissue swelling redness. Patient tender to palpation between the radius and ulna of the distal forearm of the left upper extremity. Full range of motion at the wrist bilaterally with full strength sensation intact. Proximal and distal to injury site patient is able to make the okay fingers crossed thumbs-up sign no evidence of respiratory +2 radius pulses equal in comparison bilaterally. No swelling of the distal forearm, proximal forearm or upper arm. Neurological: A&O x 3. CN II-XII intact grossly, There are no obvious motor or sensory deficits. Coordination appears grossly intact. Speech is normal. Skin: Skin is warm and dry and no rashes or lesions are noted. Psychiatric: Cooperative, appropriate mood & affect, normal judgment. Limitations: no limitations Course Vital Signs 06/14/19 11:42 Temperature 97.3 F L Pulse Rate 75 Respiratory 18 Rate Blood Pressure 109/44 O2 Sat by Pulse 99 Oximetry Medical Decision Making - Medical Decision Making 63-year-old female presents emergency room for evaluation of wrist pain atraumatic. No evidence of infectious process on physical examination normal skin avail no swelling. No fever or flulike symptoms. Ongoing for 2 days. Increase his range of motion no known injury x-ray revealed chronic arthritic changes as well as cystic changes. Direct palpation. The primary care provider and orthopedic surgeon for persistent pain. Discussed case with attending provider Dr. Chavira at this time we are agreeable discharge a patient. Patient placed in Abdoulaye bandage Disposition Clinical Impression: Wrist arthritis, Acute wrist pain Disposition: HOME SELF-CARE Condition: Good Instructions (If sedation given, give patient instructions): R.I.C.E. Treatment (ED) Additional Instructions: Please use medication as discussed. Please follow-up with family doctor in the next 2 days. Please return to emergency room if the symptoms increase or worsen or for any other concerns. Is patient prescribed a controlled substance at d/c from ED?: No Referrals: [facility] [Primary Care Provider] - 1-2 days Time of Disposition: 12:18
== END 2019-06-14 12:33 | disposition home or self-care (01) ==
LOC: EC 11:39
DX: M19.032 Primary osteoarthritis, left wrist (principal); E78.5 Hyperlipidemia, unspecified; F32.9 Major depressive disorder, single episode, unspecified; F90.9 Attention-deficit hyperactivity disorder, unspecified type; E03.9 Hypothyroidism, unspecified; Z79.899 Other long term (current) drug therapy; Z79.890 Hormone replacement therapy; Z88.8 Allergy status to other drugs, medicaments and biological substances; Z88.4 Allergy status to anesthetic agent
CPT/HCPCS: 73110; 96372; 99283; J1885; 96360

== ENCOUNTER 2020-11-30 14:00 | Emergency (ER) | payer MEDICARE, OTHER ==
[2020-11-30] MEDS ORDERED: KETOROLAC 15 MG/ML 1 ML VIAL IVP STA (15:06)
[2020-11-30] MEDS ORDERED: SODIUM CHLORIDE 0.9% 500 ML 500 ML IV STA (15:06)
--- NOTE | 2020-11-30 15:09 | ED ---
General Adult HPI - General Chief complaint: Dental/Oral Stated complaint: Face swelling,Jaw pain Time Seen by Provider: 11/30/20 14:33 Source: patient Mode of arrival: ambulatory Limitations: no limitations - History of Present Illness Initial comments: 65-year-old female presents to the emergency room for a chief complaint of neck and jaw pain. Patient states this started 3 weeks ago. States that she saw that the ENT doctor Dr. West 4 days ago and was started on Augmentin but she states she could not tell exactly what the problem was. She states that since that time she has not had any improvement in symptoms and in fact they have worsened. States today she noticed swelling to the left side of her jaw and neck. Denies fevers. States that she had pain with eating stromal eggs today and that is what made her come in because she has not had this over the past 3 weeks.Patient has no other complaints at this time including shortness of breath, chest pain, abdominal pain, nausea or vomiting, headache, or visual changes. - Related Data Home Medications Medication Instructions Recorded Confirmed Levothyroxine Sodium [Synthroid] 150 mcg PO DAILY 12/15/17 12/15/17 Loratadine [Claritin] 10 mg PO DAILY PRN 12/15/17 12/15/17 Montelukast [Singulair] 10 mg PO HS 12/15/17 12/15/17 Rosuvastatin [Crestor] 20 mg PO HS 12/15/17 12/15/17 buPROPion HCL [Wellbutrin SR] 450 mg PO DAILY 12/15/17 12/15/17 cloNIDine HCL [Catapres] 0.1 mg PO BID 12/15/17 12/15/17 Previous Rx's Medication Instructions Recorded Hydrocortisone Cream 1 applic TOPICAL BID 5 Days #1 tube 03/14/19 [Hydrocortisone 2.5% Cream] predniSONE [Deltasone] 1 mg PO BID 5 Days #10 tab 03/14/19 predniSONE 50 mg PO DAILY #5 tablet 03/26/19 Clindamycin [Cleocin] 300 mg PO Q8H 7 Days #42 cap 11/30/20 Allergies Allergy/AdvReac Type Severity Reaction Status Date / Time atorvastatin calcium Allergy Swelling Verified 11/30/20 14:05 [From Lipitor] lidocaine HCl Allergy SKIN Verified 11/30/20 14:05 [From Xylocaine] SWELLS UP @ SITE- AREA PURPLE FOR WEEKS ? CANCER MED Allergy Anaphylaxis Uncoded 11/30/20 14:05 Review of Systems ROS Statement: Those systems with pertinent positive or pertinent negative responses have been documented in the HPI. ROS Other: All systems not noted in ROS Statement are negative. Past Medical History Past Medical History: Hyperlipidemia, Thyroid Disorder Additional Past Medical History / Comment(s): Other HX: Migraine, History of Any Multi-Drug Resistant Organisms: None Reported Past Surgical History: Hysterectomy, Orthopedic Surgery Additional Past Surgical History / Comment(s): 09/04/15 R rotator cuff repair. Other surgery: thyroidectomy, ovarian cyst, polyp removed from cervix. Past Anesthesia/Blood Transfusion Reactions: No Reported Reaction Past Psychological History: ADD/ADHD, Depression Smoking Status: Never smoker Past Alcohol Use History: None Reported Past Drug Use History: None Reported - Past Family History Father Family Medical History: Myocardial Infarction ([place]) Additional Family Medical History / Comment(s): fathers side of family had cardiac problems Mother Family Medical History: Cancer Additional Family Medical History / Comment(s): kidney cancer General Exam Limitations: no limitations General appearance: alert, in no apparent distress Head exam: Present: atraumatic, normocephalic, normal inspection Eye exam: Present: normal appearance, PERRL, EOMI. Absent: scleral icterus, conjunctival injection, periorbital swelling ENT exam: Present: normal exam, normal oropharynx (Dentures were removed. I do not see any abscesses or gum irritation.), mucous membranes moist, TM's normal bilaterally, normal external ear exam Neck exam: Present: normal inspection, full ROM. Absent: tenderness, meningism us, lymphadenopathy Respiratory exam: Present: normal lung sounds bilaterally. Absent: respiratory distress, wheezes, rales, rhonchi, stridor Cardiovascular Exam: Present: regular rate, normal rhythm, normal heart sounds. Absent: systolic murmur, diastolic murmur, rubs, gallop, clicks GI/Abdominal exam: Present: soft, normal bowel sounds. Absent: distended, tenderness, guarding, rebound, rigid Course Vital Signs 11/30/20 14:03 Temperature 97.9 F Pulse Rate 94 Respiratory 16 Rate Blood Pressure 139/81 O2 Sat by Pulse 94 L Oximetry Medical Decision Making - Medical Decision Making Vitals are stable. Patient has minimal edema noted of the right jawline without any erythema. Tenderness of the right neck and right lower jaw. I do not see any lesions on the oral mucosa. All teeth removed. No trismus. No neck stiffness or posterior neck pain. Respiratory CBC CMP unremarkable. Soft tissue Neck CT with contrast showed no suspicious acute changes. She was given Toradol and did have improvement in symptoms. She is on Augmentin currently we will change to clindamycin. Also recommended she do anti-inflammatories. We will start her on Tylenol 3 for breakthrough pain. She'll return for any worsening symptoms. Otherwise she will follow up with ENT and primary again. - Lab Data Result diagrams: 11/30/20 15:13 11/30/20 15:15 Lab Results 11/30/20 11/30/20 Range/Units 15:13 15:15 WBC 7.0 (3.8-10.6) k/uL RBC 5.34 (3.80-5.40) m/uL Hgb 15.1 (11.4-16.0) gm/dL Hct 46.7 H (34.0-46.0) % MCV 87.4 (80.0-100.0) fL MCH 28.4 (25.0-35.0) pg MCHC 32.4 (31.0-37.0) g/dL RDW 14.3 (11.5-15.5) % Plt Count 265 (150-450) k/uL MPV 6.6 Neutrophils % 72 % Lymphocytes % 19 % Monocytes % 5 % Eosinophils % 2 % Basophils % 0 % Neutrophils # 5.1 (1.3-7.7) k/uL Lymphocytes # 1.4 (1.0-4.8) k/uL Monocytes # 0.3 (0-1.0) k/uL Eosinophils # 0.1 (0-0.7) k/uL Basophils # 0.0 (0-0.2) k/uL Sodium 141 (137-145) mmol/L Potassium 4.5 (3.5-5.1) mmol/L Chloride 106 (98-107) mmol/L Carbon Dioxide 26 (22-30) mmol/L Anion Gap 9 mmol/L BUN 18 H (7-17) mg/dL Creatinine 1.03 (0.52-1.04) mg/dL Est GFR (CKD-EPI)AfAm 67 (>60 ml/min/1.73 sqM) Est GFR (CKD-EPI)NonAf 58 (>60 ml/min/1.73 sqM) Glucose 112 H (74-99) mg/dL Calcium 9.8 (8.4-10.2) mg/dL Total Bilirubin 0.5 (0.2-1.3) mg/dL AST 32 (14-36) U/L ALT 30 (4-34) U/L Alkaline Phosphatase 87 (38-126) U/L Total Protein 7.6 (6.3-8.2) g/dL Albumin 4.8 (3.5-5.0) g/dL Disposition Clinical Impression: Jaw pain Disposition: HOME SELF-CARE Condition: Good Instructions (If sedation given, give patient instructions): Atypical Facial Pain (ED) Additional Instructions: Please take Motrin and Tylenol alternating every 3-4 hours. Apply ice to the area. Take clindamycin and discontinue Augmentin. Follow back up with ENT or primary care. Return to the emergency room for any worsening symptoms. Prescriptions: Clindamycin [Cleocin] 300 mg PO Q8H 7 Days #42 cap Is patient prescribed a controlled substance at d/c from ED?: No Referrals: [facility] [Primary Care Provider] - 1-2 days Time of Disposition: 16:30
[2020-11-30 15:23] LABS: Basophils % (A) 0 %; Eosinophils # (A) 0.1 k/uL (0-0.7); Eosinophils % (A) 2 %; HCT 46.7 % (34.0-46.0); HGB 15.1 gm/dL (11.4-16.0); Lymphocytes # (A) 1.4 k/uL (1.0-4.8); Lymphocytes % (A) 19 %; MCH 28.4 pg (25.0-35.0); MCHC 32.4 g/dL (31.0-37.0); MCV 87.4 fL (80.0-100.0); Mean Platelet Volume 6.6; Monocytes # (A) 0.3 k/uL (0-1.0); Monocytes % (A) 5 %; Neutrophils # (A) 5.1 k/uL (1.3-7.7); Neutrophils % (A) 72 %; Platelet Count 265 k/uL (150-450); RBC 5.34 m/uL (3.80-5.40); RDW 14.3 % (11.5-15.5)
[2020-11-30 15:34] LABS: Albumin 4.8 g/dL (3.5-5.0); Calcium 9.8 mg/dL (8.4-10.2); Potassium 4.5 mmol/L (3.5-5.1); Total Bilirubin 0.5 mg/dL (0.2-1.3); Total Protein 7.6 g/dL (6.3-8.2)
--- NOTE | 2020-11-30 16:05 | CT ---
EXAMINATION TYPE: CT soft tissue neck w con DATE OF EXAM: 11/30/2020 COMPARISON: Cervical spine 09/14/2012 HISTORY: Jaw and ear pain with painful chewing CT DLP: 373 mGycm CONTRAST: Patient injected with 100 mL of Isovue 300. TECHNIQUE: Axial images at 3 mm thick sections. Reconstructed images in the coronal plane and sagitt al plane are reviewed. FINDINGS: Limited CT sections are obtained the lung apices. The lung apices appear clear. CT neck: The torus tubarius and fossa of Rosenmuller are normal. Dining Room Busser spaces are normal. Para nasal sinuses and mastoid air cells are clear. Parotid glands appear normal and symmetrical. Submandibular glands, are normal. Parapharyngeal spac es are normal. No suspicious adenopathy is evident. There is some asymmetry of the vocal cords levels with some calcification and thickening along the ri ght arytenoid cartilage region. This appears stable from 09/14/2012 comparison. The epiglottis appears normal. Thyroid is not identified. Prevertebral space is normal. Note is made of medial course of the bilate ral internal carotid arteries into the prevertebral space. Degenerative disc changes at the cervical spine. Mild kyphosis of the upper cervical spine. Prior right mastoidectomy. Temporomandibular junctions appear within normal limits. IMPRESSIONS: 1. No suspicious acute changes.
[2020-11-30 16:41] VITALS: BP 149/82; PULSE 89; RESP 18; TEMP 98.1
== END 2020-11-30 16:39 | disposition home or self-care (01) ==
LOC: EC 14:00
DX: R68.84 Jaw pain (principal); M54.2 Cervicalgia; E78.5 Hyperlipidemia, unspecified; F32.9 Major depressive disorder, single episode, unspecified; E07.9 Disorder of thyroid, unspecified; Z90.710 Acquired absence of both cervix and uterus
CPT/HCPCS: 36415; 80053; 85025; 70491; 99284; 96374; 96361; J1885; Q9967

== ENCOUNTER 2021-05-04 11:26 | Emergency (ER) | payer MEDICARE, OTHER ==
[2021-05-04 12:30] VITALS: BP 137/99; PULSE 92; RESP 18; TEMP 98.4
--- NOTE | 2021-05-04 12:37 | ED ---
ENT HPI - General Chief complaint: ENT Stated complaint: ear pain/cough Time Seen by Provider: 05/04/21 12:22 Source: patient, RN notes reviewed Mode of arrival: ambulatory Limitations: no limitations - History of Present Illness Initial comments: This a 65-year-old female presents emergency from chief complaint of nasal congestion, cough, sore throat. Patient states started today. Patient states started after walking one to her PCPs office who sent to the emergency department. Patient states she's been actually for COVID-19 but is concerned about COVID-19. Patient states she has multiple family members with a blister infection. Patient states that she has asthma, COPD. No worsening shortness breath no chest pain. - Related Data Home Medications Medication Instructions Recorded Confirmed Levothyroxine Sodium [Synthroid] 150 mcg PO DAILY 12/15/17 12/15/17 Loratadine [Claritin] 10 mg PO DAILY PRN 12/15/17 12/15/17 Montelukast [Singulair] 10 mg PO HS 12/15/17 12/15/17 Rosuvastatin [Crestor] 20 mg PO HS 12/15/17 12/15/17 buPROPion HCL [Wellbutrin SR] 450 mg PO DAILY 12/15/17 12/15/17 cloNIDine HCL [Catapres] 0.1 mg PO BID 12/15/17 12/15/17 Previous Rx's Medication Instructions Recorded Hydrocortisone Cream 1 applic TOPICAL BID 5 Days #1 tube 03/14/19 [Hydrocortisone 2.5% Cream] predniSONE [Deltasone] 1 mg PO BID 5 Days #10 tab 03/14/19 predniSONE 50 mg PO DAILY #5 tablet 03/26/19 Clindamycin [Cleocin] 300 mg PO Q8H 7 Days #42 cap 11/30/20 Allergies Allergy/AdvReac Type Severity Reaction Status Date / Time atorvastatin calcium Allergy Swelling Verified 05/04/21 12:30 [From Lipitor] lidocaine HCl Allergy SKIN Verified 05/04/21 12:30 [From Xylocaine] SWELLS UP @ SITE- AREA PURPLE FOR WEEKS ? CANCER MED Allergy Anaphylaxis Uncoded 05/04/21 12:30 Review of Systems ROS Statement: Those systems with pertinent positive or pertinent negative responses have been documented in the HPI. ROS Other: All systems not noted in ROS Statement are negative. Past Medical History Past Medical History: Hyperlipidemia, Thyroid Disorder Additional Past Medical History / Comment(s): Other HX: Migraine, History of Any Multi-Drug Resistant Organisms: None Reported Past Surgical History: Hysterectomy, Orthopedic Surgery Additional Past Surgical History / Comment(s): 09/04/15 R rotator cuff repair. Other surgery: thyroidectomy, ovarian cyst, polyp removed from cervix. Past Anesthesia/Blood Transfusion Reactions: No Reported Reaction Past Psychological History: ADD/ADHD, Depression Smoking Status: Never smoker Past Alcohol Use History: None Reported Past Drug Use History: None Reported - Past Family History Father Family Medical History: Myocardial Infarction ([place]) Additional Family Medical History / Comment(s): fathers side of family had cardiac problems Mother Family Medical History: Cancer Additional Family Medical History / Comment(s): kidney cancer General Exam Limitations: no limitations General appearance: alert, in no apparent distress ENT exam: Present: normal exam, mucous membranes moist Neck exam: Present: normal inspection, full ROM. Absent: tenderness, meningismus, lymphadenopathy Respiratory exam: Present: normal lung sounds bilaterally. Absent: respiratory distress, wheezes, rales, rhonchi, stridor Cardiovascular Exam: Present: regular rate, normal rhythm, normal heart sounds. Absent: systolic murmur, diastolic murmur, rubs, gallop, clicks Course Vital Signs 05/04/21 12:26 Temperature 98.4 F Pulse Rate 92 Respiratory 18 Rate Blood Pressure 137/99 O2 Sat by Pulse 94 L Oximetry Medical Decision Making - Medical Decision Making Patient has negative for COVID-19. Patient has a viral upper respiratory infection will be discharged patient. - Lab Data Lab Results 05/04/21 Range/Units 12:34 Coronavirus (PCR) Not Detected (Not Detectd) Disposition Clinical Impression: Upper respiratory infection Disposition: HOME SELF-CARE Condition: Stable Instructions (If sedation given, give patient instructions): Upper Respiratory Infection (ED) Additional Instructions: Please return to the Emergency Department if symptoms worsen or any other concerns. Is patient prescribed a controlled substance at d/c from ED?: No Referrals: [facility] [Primary Care Provider] - 1-2 days Time of Disposition: 13:25
== END 2021-05-04 13:38 | disposition home or self-care (01) ==
LOC: EC 11:26
DX: J06.9 Acute upper respiratory infection, unspecified (principal); E78.5 Hyperlipidemia, unspecified; Z79.52 Long term (current) use of systemic steroids; Z79.890 Hormone replacement therapy; Z79.899 Other long term (current) drug therapy; F32.9 Major depressive disorder, single episode, unspecified; Z82.49 Family history of ischemic heart disease and other diseases of the circulatory system; Z20.822 Contact with and (suspected) exposure to COVID-19
CPT/HCPCS: 87635; 99283

== ENCOUNTER 2021-07-26 08:40 | Emergency (ER) | payer MEDICARE, OTHER ==
[2021-07-26] MEDS ORDERED: ACETAMINOPHEN TAB 500 MG TAB PO STA (09:05)
--- NOTE | 2021-07-26 09:08 | ED ---
General Adult HPI - General Chief complaint: Upper Respiratory Infection Stated complaint: cough, fever, body aches Time Seen by Provider: 07/26/21 08:54 Source: patient, RN notes reviewed Mode of arrival: ambulatory Limitations: no limitations - History of Present Illness Initial comments: Patient is a pleasant 65-year-old female presenting to the emergency department with concerns with upper respiratory symptoms. Onset of symptoms was 3 or 4 days ago. Patient did have a negative [place] test at that time. Patient does have cough with productive sputum, unclear which color. Patient has congestion. No dyspnea. Patient has subjective fever and chills. Patient has fatigue and myalgia. Patient has had an episode or 2 of diarrhea. No vomiting. - Related Data Home Medications Medication Instructions Recorded Confirmed Levothyroxine Sodium [Synthroid] 150 mcg PO DAILY 12/15/17 12/15/17 Loratadine [Claritin] 10 mg PO DAILY PRN 12/15/17 12/15/17 Montelukast [Singulair] 10 mg PO HS 12/15/17 12/15/17 Rosuvastatin [Crestor] 20 mg PO HS 12/15/17 12/15/17 buPROPion HCL [Wellbutrin SR] 450 mg PO DAILY 12/15/17 12/15/17 cloNIDine HCL [Catapres] 0.1 mg PO BID 12/15/17 12/15/17 Previous Rx's Medication Instructions Recorded Hydrocortisone Cream 1 applic TOPICAL BID 5 Days #1 tube 03/14/19 [Hydrocortisone 2.5% Cream] predniSONE [Deltasone] 1 mg PO BID 5 Days #10 tab 03/14/19 predniSONE 50 mg PO DAILY #5 tablet 03/26/19 Clindamycin [Cleocin] 300 mg PO Q8H 7 Days #42 cap 11/30/20 Amoxicillin/Potassium Clav 1 tab PO Q12HR #20 tab 05/04/21 [Augmentin 875-125 Tablet] Albuterol Sulfate [Albuterol 2 puff INHALATION Q6H PRN #8.5 gm 07/26/21 Sulfate Hfa] Allergies Allergy/AdvReac Type Severity Reaction Status Date / Time atorvastatin calcium Allergy Swelling Verified 07/26/21 08:53 [From Lipitor] lidocaine HCl Allergy SKIN Verified 07/26/21 08:53 [From Xylocaine] SWELLS UP @ SITE- AREA PURPLE FOR WEEKS ? CANCER MED Allergy Anaphylaxis Uncoded 07/26/21 08:53 Review of Systems ROS Statement: Those systems with pertinent positive or pertinent negative responses have been documented in the HPI. ROS Other: All systems not noted in ROS Statement are negative. Constitutional: Reports: fever, chills Eyes: Denies: eye pain ENT: Reports: congestion. Denies: ear pain Respiratory: Reports: cough Cardiovascular: Denies: palpitations Endocrine: Reports: fatigue Gastrointestinal: Reports: diarrhea. Denies: abdominal pain, vomiting Genitourinary: Denies: dysuria Musculoskeletal: Denies: back pain Skin: Denies: rash Neurological: Denies: weakness Past Medical History Past Medical History: Hyperlipidemia, Thyroid Disorder Additional Past Medical History / Comment(s): Other HX: Migraine, History of Any Multi-Drug Resistant Organisms: None Reported Past Surgical History: Hysterectomy, Orthopedic Surgery Additional Past Surgical History / Comment(s): 09/04/15 R rotator cuff repair. Other surgery: thyroidectomy, ovarian cyst, polyp removed from cervix. Past Anesthesia/Blood Transfusion Reactions: No Reported Reaction Past Psychological History: ADD/ADHD, Depression Smoking Status: Never smoker Past Alcohol Use History: None Reported Past Drug Use History: None Reported - Past Family History Father Family Medical History: Myocardial Infarction ([place]) Additional Family Medical History / Comment(s): fathers side of family had cardiac problems Mother Family Medical History: Cancer Additional Family Medical History / Comment(s): kidney cancer General Exam Limitations: no limitations General appearance: alert, in no apparent distress Head exam: Present: normocephalic Eye exam: Present: normal appearance Neck exam: Present: normal inspection Respiratory exam: Present: normal lung sounds bilaterally. Absent: respiratory distress, wheezes Cardiovascular Exam: Present: regular rate, normal rhythm GI/Abdominal exam: Present: soft. Absent: tenderness Extremities exam: Present: normal inspection Neurological exam: Present: alert Psychiatric exam: Present: normal affect, normal mood Skin exam: Present: normal color Course Vital Signs 07/26/21 08:47 Temperature 99.4 F Pulse Rate 112 H Respiratory 18 Rate Blood Pressure 126/73 O2 Sat by Pulse 94 L Oximetry Medical Decision Making - Medical Decision Making Patient reevaluated and resting comfortably in bed. Patient updated on results. Patient offered blood work and further evaluation however refuses. Patient is comfortable with discharge home. Patient is made aware of potential of false negative test. - Lab Data Lab Results 07/26/21 07/26/21 Range/Units 09:11 09:11 Coronavirus (PCR) Not Detected (Not Detectd) Influenza Type A RNA Not Detected (Not Detectd) Influenza Type B (PCR) Not Detected (Not Detectd) - Radiology Data Radiology results: image reviewed (Chest x-ray shows no acute process) Disposition Clinical Impression: Bronchitis Disposition: HOME SELF-CARE Condition: Stable Instructions (If sedation given, give patient instructions): Acute Bronchitis (ED) Additional Instructions: Prescription for inhaler sent to pharmacy. Please follow-up with primary care physician in the next couple days for recheck. Return for difficulty breathing, worsening symptoms or any other concerns. [id number] vitamin C, vitamin D, and zinc. Melatonin at time. [id number] Tylenol as needed. Prescriptions: Albuterol Sulfate [Albuterol Sulfate Hfa] 2 puff INHALATION Q6H PRN #8.5 gm PRN Reason: Shortness Of Breath Is patient prescribed a controlled substance at d/c from ED?: No Referrals: [facility] [Primary Care Provider] - 1-2 days Time of Disposition: 10:59
--- NOTE | 2021-07-26 09:23 | XR ---
EXAMINATION TYPE: XR chest 2V DATE OF EXAM: 07/26/2021 COMPARISON: 12/15/2017 HISTORY: Shortness of breath TECHNIQUE: Frontal and lateral views of the chest are obtained. FINDINGS: Scattered senescent parenchymal changes noted. Hyperinflation compatible with COPD. No evidence for infiltrate. No evidence for atelectasis. Heart size is stable. Mediastinal structures are stable and grossly unremarkable. No evidence for hilar prominence. Degenerative changes dorsal spine. IMPRESSION: 1. No evidence for acute pulmonary disease.
[2021-07-26 13:08] VITALS: BP 138/78; PULSE 78; RESP 16; TEMP 98.2
== END 2021-07-26 13:07 | disposition home or self-care (01) ==
LOC: EC 08:40
DX: J20.9 Acute bronchitis, unspecified (principal); E78.5 Hyperlipidemia, unspecified; E07.9 Disorder of thyroid, unspecified; F90.9 Attention-deficit hyperactivity disorder, unspecified type; F32.A Depression, unspecified; Z20.822 Contact with and (suspected) exposure to COVID-19; Z90.710 Acquired absence of both cervix and uterus
CPT/HCPCS: 71046; 87502; 87635; 99283

== ENCOUNTER 2021-11-08 21:45 | Emergency (ER) | payer MEDICARE, OTHER ==
[2021-11-08] MEDS ORDERED: TOPICAL SKIN ADHESIVE 1 EACH AMP TOPICAL ONE (22:37)
--- NOTE | 2021-11-08 23:21 | XR ---
EXAMINATION TYPE: XR nasal bone DATE OF EXAM: 11/08/2021 COMPARISON: NONE HISTORY: Fall. Injury TECHNIQUE: 3 view FINDINGS: Nasal bone is intact. Maxillary spine is intact. The orbital margins are intact. There is n ormal aeration of the maxillary sinuses. No evidence of orbital blowout fracture. IMPRESSION: Negative nasal bone exam.
--- NOTE | 2021-11-08 23:29 | ED ---
Fall HPI - General Chief Complaint: Fall Stated Complaint: Facial injury Time Seen by Provider: 11/08/21 21:56 Source: patient Mode of arrival: ambulatory - History of Present Illness Complaint: fall -: hour(s) Fall From: down stairs (#) (1) When Fall Occurred: just prior to arrival Fall Witnessed: yes, by family Place Fall Occurred: other Loss of Consciousness: none Prolonged Down Time?: no Symptoms Prior to Fall: none Location: face Severity: mild Context: tripped/slipped - Related Data Home Medications Medication Instructions Recorded Confirmed Loratadine [Claritin] 10 mg PO DAILY PRN 12/15/17 11/08/21 Montelukast [Singulair] 10 mg PO HS 12/15/17 11/08/21 buPROPion HCL [Wellbutrin SR] 450 mg PO HS 12/15/17 11/08/21 Albuterol Sulfate [Albuterol 2 puff INHALATION RT-Q4H PRN 11/08/21 11/08/21 Sulfate Hfa] Fluticasone/Vilanterol [Breo 1 puff INHALATION RT-DAILY 11/08/21 11/08/21 Ellipta 100-25 Mcg Inhaler] Ibuprofen [Motrin] 800 mg PO Q8H PRN 11/08/21 11/08/21 LORazepam [Ativan] 0.5 mg PO HS PRN 11/08/21 11/08/21 Levothyroxine Sodium [Synthroid] 175 mcg PO DAILY 11/08/21 11/08/21 Rosuvastatin Calcium [Crestor] 40 mg PO HS 11/08/21 11/08/21 diphenhydrAMINE [Benadryl] 25 mg PO HS 11/08/21 11/08/21 lisinopriL [Zestril] 5 mg PO HS 11/08/21 11/08/21 Allergies Allergy/AdvReac Type Severity Reaction Status Date / Time atorvastatin calcium Allergy Swelling Verified 11/08/21 22:36 [From Lipitor] lidocaine HCl Allergy SKIN Verified 11/08/21 22:36 [From Xylocaine] SWELLS UP @ SITE- AREA PURPLE FOR WEEKS ? CANCER MED Allergy Anaphylaxis Uncoded 11/08/21 21:52 Review of Systems ROS Statement: Those systems with pertinent positive or pertinent negative responses have been documented in the HPI. ROS Other: All systems not noted in ROS Statement are negative. Eyes: Denies: eye pain, vision change ENT: Denies: epistaxis, congestion Respiratory: Denies: cough, dyspnea Cardiovascular: Denies: chest pain, palpitations Gastrointestinal: Denies: abdominal pain Musculoskeletal: Denies: back pain Skin: Reports: other (Abrasions) Neurological: Denies: headache, weakness, numbness, paresthesias, confusion Past Medical History Past Medical History: Hyperlipidemia, Thyroid Disorder Additional Past Medical History / Comment(s): Other HX: Migraine, History of Any Multi-Drug Resistant Organisms: None Reported Past Surgical History: Hysterectomy, Orthopedic Surgery Additional Past Surgical History / Comment(s): 09/04/15 R rotator cuff repair. Other surgery: thyroidectomy, ovarian cyst, polyp removed from cervix. Past Anesthesia/Blood Transfusion Reactions: No Reported Reaction Past Psychological History: ADD/ADHD, Depression Smoking Status: Never smoker Past Alcohol Use History: None Reported Past Drug Use History: None Reported - Past Family History Father Family Medical History: Myocardial Infarction ([place]) Additional Family Medical History / Comment(s): fathers side of family had cardiac problems Mother Family Medical History: Cancer Additional Family Medical History / Comment(s): kidney cancer General Exam Limitations: no limitations General appearance: alert, in no apparent distress Head exam: Present: atraumatic, normocephalic Eye exam: Present: normal appearance, PERRL, EOMI. Absent: scleral icterus, conjunctival injection, nystagmus, periorbital swelling, periorbital tenderness ENT exam: Present: other (Laceration to bridge and nose.) Neck exam: Present: normal inspection, full ROM. Absent: tenderness Respiratory exam: Present: normal lung sounds bilaterally. Absent: respiratory distress, wheezes, rales, rhonchi, stridor, chest wall tenderness Cardiovascular Exam: Present: regular rate, normal rhythm, normal heart sounds. Absent: systolic murmur, diastolic murmur, rubs, gallop GI/Abdominal exam: Present: soft. Absent: tenderness, guarding, rebound Extremities exam: Present: normal inspection, full ROM, normal capillary refill. Absent: tenderness Neurological exam: Present: alert, oriented X3, CN II-XII intact Skin exam: Present: warm, dry, normal color, abrasion Course Vital Signs 11/08/21 11/09/21 21:47 00:15 Pulse Rate 78 77 Respiratory 16 18 Rate Blood Pressure 138/86 133/69 O2 Sat by Pulse 98 97 Oximetry Procedures - Laceration Laceration #1 Consent Obtained: verbal consent Indication: laceration Site: face Description: linear Type of Sutures: other (Skin adhesive) Technique: other (Skin adhesive) Patient Tolerated Procedure: well, no complications Disposition Clinical Impression: Fall, Facial laceration Disposition: HOME SELF-CARE Condition: Good Instructions (If sedation given, give patient instructions): Laceration (DC) Is patient prescribed a controlled substance at d/c from ED?: No Referrals: [facility] [Primary Care Provider] - 1-2 days
[2021-11-09 00:16] VITALS: BP 133/69; PULSE 77; RESP 18
[2021-11-09] MEDS ORDERED: BACITRACIN OINT 1 EACH PACKET TOPICAL ONE (00:22)
== END 2021-11-09 00:42 | disposition home or self-care (01) ==
LOC: EC 21:45
DX: S01.21XA Laceration without foreign body of nose, initial encounter (principal); E78.5 Hyperlipidemia, unspecified; F32.A Depression, unspecified; F90.9 Attention-deficit hyperactivity disorder, unspecified type; Z79.899 Other long term (current) drug therapy; Z79.890 Hormone replacement therapy; W10.9XXA Fall (on) (from) unspecified stairs and steps, initial encounter
CPT/HCPCS: 12011; 70160; 99284

== ENCOUNTER → 2021-11-18 | Outpatient (CLI) | payer MEDICARE, OTHER ==
--- NOTE | 2021-11-18 16:10 | NM ---
EXAMINATION TYPE: NM hepatobiliary w EF DATE OF EXAM: 11/18/2021 COMPARISON: NONE INDICATION: Nausea and diarrhea elevated liver enzymes TECHNIQUE: After the intravenous administration of 5.1 mCi Tc 99m Mebrofenin hepatobiliary scintigrap hy is performed. Images were obtained immediately post injection. FINDINGS: There is prompt uptake and excretion of radiotracer by the liver. Extrahepatic ducts are identified at 8 minutes. The gallbladder is visualized within 42 minutes. Small bowel activity is noted within 16 minutes. At one hour 8 ounces of oral ensure plus is given to mimic CCK and gallbladder ejection fraction is c alculated at 95 %, which is elevated. (Normal >35% and <80%.). IMPRESSION: 1. Biliary hyperkinesia.
== END | disposition home or self-care (01) ==
LOC: RADNMMAIN 06:56
PROVIDERS: ATTEND Nurse Practitioner
DX: K83.8 Other specified diseases of biliary tract (principal)
CPT/HCPCS: 78226; A9537

== ENCOUNTER 2024-09-29 08:49 | Emergency (ER) | payer MEDICARE, OTHER ==
[2024-09-29] MEDS: PROPARACAINE 0.5% OPHTH DROPS 15 ML BTL RIGHT EYE STA (09:48)
[2024-09-29] MEDS: FLUORESCEIN STRIPS 1 MG STRIP RIGHT EYE ONE (09:48)
--- NOTE | 2024-09-29 10:08 | ED ---
Eye Problem HPI - General Chief complaint: Eye Problems Stated complaint: eye watering Time Seen by Provider: 09/29/24 09:00 Source: patient, RN notes reviewed Mode of arrival: ambulatory Limitations: no limitations - History of Present Illness Initial comments: This is a 68-year-old female who presents to the emergency department for right eye drainage. Patient states that starting yesterday she developed itching and drainage to the right eye. She has been dealing with sinus and ear infections over the last couple of weeks and has been on 2 rounds of antibiotics. Denies any difficulty with her vision. She followed up with Dr. Mata, ophthalmology, yesterday and was told that everything looked good. - Related Data Home Medications Medication Instructions Recorded Confirmed Loratadine [Claritin] 10 mg PO DAILY PRN 12/15/17 11/08/21 Montelukast [Singulair] 10 mg PO HS 12/15/17 11/08/21 buPROPion HCL [Wellbutrin SR] 450 mg PO HS 12/15/17 11/08/21 Albuterol Sulfate [Albuterol 2 puff INHALATION RT-Q4H PRN 11/08/21 11/08/21 Sulfate Hfa] Fluticasone/Vilanterol [Breo 1 puff INHALATION RT-DAILY 11/08/21 11/08/21 Ellipta 100-25 Mcg Inhaler] Ibuprofen [Motrin] 800 mg PO Q8H PRN 11/08/21 11/08/21 LORazepam [Ativan] 0.5 mg PO HS PRN 11/08/21 11/08/21 Levothyroxine Sodium [Synthroid] 175 mcg PO DAILY 11/08/21 11/08/21 Rosuvastatin Calcium [Crestor] 40 mg PO HS 11/08/21 11/08/21 diphenhydrAMINE [Benadryl] 25 mg PO HS 11/08/21 11/08/21 lisinopriL [Zestril] 5 mg PO HS 11/08/21 11/08/21 Allergies Allergy/AdvReac Type Severity Reaction Status Date / Time atorvastatin calcium Allergy Swelling Verified 09/29/24 08:59 [From Lipitor] lidocaine HCl Allergy SKIN Verified 09/29/24 08:59 [From Xylocaine] SWELLS UP @ SITE- AREA PURPLE FOR WEEKS ? CANCER MED Allergy Anaphylaxis Uncoded 09/29/24 08:59 Review of Systems ROS Statement: Those systems with pertinent positive or pertinent negative responses have been documented in the HPI. ROS Other: All systems not noted in ROS Statement are negative. Past Medical History Past Medical History: Hyperlipidemia, Thyroid Disorder Additional Past Medical History / Comment(s): Other HX: Migraine, History of Any Multi-Drug Resistant Organisms: None Reported Past Surgical History: Hysterectomy, Orthopedic Surgery Additional Past Surgical History / Comment(s): 09/04/15 R rotator cuff repair. Other surgery: thyroidectomy, ovarian cyst, polyp removed from cervix. Past Anesthesia/Blood Transfusion Reactions: No Reported Reaction Past Psychological History: ADD/ADHD, Depression Smoking Status: Never smoker Past Alcohol Use History: None Reported Past Drug Use History: None Reported - Past Family History Father Family Medical History: Myocardial Infarction (MS) Additional Family Medical History / Comment(s): fathers side of family had card iac problems Mother Family Medical History: Cancer Additional Family Medical History / Comment(s): kidney cancer General Exam Limitations: no limitations General appearance: alert, in no apparent distress Head exam: Present: atraumatic, normocephalic, normal inspection Eye exam: Present: PERRL, EOMI, other (Minor right conjunctival injection with clear drainage. No crusting of the lashes or purulent discharge noted.) Respiratory exam: Present: normal lung sounds bilaterally. Absent: respiratory distress, wheezes, rales, rhonchi, stridor Cardiovascular Exam: Present: regular rate, normal rhythm Neurological exam: Present: alert, oriented X3, CN II-XII intact Psychiatric exam: Present: normal affect, normal mood Skin exam: Present: warm, dry, intact, normal color. Absent: rash Course Vital Signs 09/29/24 09/29/24 08:57 10:29 Temperature 98.4 F 98.1 F Pulse Rate 78 72 Respiratory 20 18 Rate Blood Pressure 130/82 125/84 O2 Sat by Pulse 99 99 Oximetry Medical Decision Making - Medical Decision Making This is a 68-year-old female who presents to the emergency department for right eye drainage. Was pt. sent in by a medical professional or institution? @ -No Did you speak to anyone other than the patient for history? @ -No Did you review nursing and triage notes? @ -Yes, and I agree, it is accurate with regards to the patient's symptoms. Were old charts reviewed? @ -No Differential Diagnosis? @ -Differential Eye Pain: Conjuncitivitis (viral, bacterial, allergic), corneal abrasion, foreign body, iritis, uveitis, keratitis, acute angle closure glaucoma, this is not meant to be an all-inclusive list. EKG interpreted by me (3pts min.)? @ -Not obtained X-rays interpreted by me (1pt min.)? @ -Not obtained CT interpreted by me (1pt min.)? @ -Not obtained U/S interpreted by me (1pt. min.)? @ -Not obtained What testing was considered but not performed? (CT, X-rays, U/S, labs)? Why? @ -None What meds were considered but not given? Why? @ -None Did you discuss the management of the patient with other professionals? @ -No Did you reconcile home meds? @ -No Was smoking cessation discussed for >3mins.? @ -No Was critical care preformed (if so, how long)? @ -No Were there social determinants of health that impacted care today? How? (Homelessness, low income, unemployed, alcoholism, drug addiction, transportation, low edu. Level, literacy, decrease access to med. care, alf, rehab)? @ -No Was there de-escalation of care discussed even if they declined? (Discuss DNR or withdrawal of care, Hospice)? @ -No What co-morbidities impacted this encounter? (DM, HTN, Smoking, COPD, CAD, Cancer, CVA, Hep., AIDS, mental health diagnosis, sleep apnea, morbid obesity)? @ -None Was patient admitted / discharged? @ -Discharged. On physical examination she had mild conjunctival injection with clear drainage suggestive of a viral or allergic conjunctivitis. Fluoresce in staining performed revealing no evidence of a corneal abrasion. Vision was 20/50 bilaterally. We discussed the use of antihistamines and having her follow back up with ophthalmology if she continues to be symptomatic. Patient discharged home in stable condition. Case discussed with ED attending Dr. Landin. Return precautions reviewed in depth, the patient is instructed to return to the emergency department with any new, worsening, or concerning symptoms. Patient verbalized understanding. Undiagnosed new problem with uncertain prognosis? @ -None Drug Therapy requiring intensive monitoring for toxicity (Heparin, Nitro, Insulin, Cardizem)? @ -None Were any procedures done? @ -None Diagnosis/symptom? @ -Viral versus allergic conjunctivitis Acute, or Chronic, or Acute on Chronic? @ -Acute Uncomplicated (without systemic symptoms) or Complicated (systemic symptoms)? @ -Uncomplicated Side effects of treatment? @ -None Exacerbation, Progression, or Severe Exacerbation] @ -Not applicable Poses a threat to life or bodily function? @ -No Disposition Clinical Impression: Allergic conjunctivitis, Viral conjunctivitis Disposition: HOME SELF-CARE Instructions (If sedation given, give patient instructions): Conjunctivitis (ED) Additional Instructions: Return to the emergency department with any new, worsening, or concerning symptoms. Follow back up with Dr. Mata. Is patient prescribed a controlled substance at d/c from ED?: No Referrals: Tay Carvalho MD [Primary Care Provider] - 1-2 days Caprice Mata MD [STAFF PHYSICIAN] - 1-2 days Time of Disposition: 10:07
[2024-09-29] MEDS: KETOTIFEN 0.025% OPHTH DROPS 5 ML BTL RIGHT EYE STA (10:21)
[2024-09-29] MEDS: diphenhydrAMINE 50 MG/ML 1 ML VIAL IM STA (10:26)
[2024-09-29 10:30] VITALS: BP 125/84; PULSE 72; RESP 18; TEMP 98.1
== END 2024-09-29 10:31 | disposition home or self-care (01) ==
LOC: EC 08:49
DX: B30.9 Viral conjunctivitis, unspecified (principal)
CPT/HCPCS: 99283; 96372; J1200

== ENCOUNTER 2024-10-19 04:32 | Emergency (ER) | payer MEDICARE, OTHER ==
[2024-10-19 04:44] VITALS: RESP 18
[2024-10-19 05:48] LABS: Influenza A Not Detected (Not Detectd); Influenza B Not Detected (Not Detectd); RSV Not Detected (Not Detectd)
--- NOTE | 2024-10-19 06:45 | ED ---
URI HPI - General Chief Complaint: Upper Respiratory Infection Stated Complaint: sore throat,cough Time Seen by Provider: 10/19/24 04:59 Source: patient Mode of arrival: ambulatory Limitations: no limitations - History of Present Illness Initial Comments: This patient is a 68-year-old woman who presents to have evaluation of a constellation of symptoms that been going on intermittently for 4 to 6 weeks. She states that she has had congestion cough, sinus pressure, ear pressure. She has been seen in the clinic for this and has completed 2 courses of antibiotics. She states that the symptoms would improve but returned. She has not had loss of hearing. Not noticing fevers currently. No dyspnea. MD Complaint: cough, nasal congestion, other (Ear pain) -: week(s) Severity: moderate Quality: dull Consistency: constant Improves With: other (Antibiotic) Worsens With: nothing Associated Symptoms: nasal congestion, cough, ear pain Treatments Prior to Arrival: antibiotics - Related Data Home Medications Medication Instructions Recorded Confirmed Loratadine [Claritin] 10 mg PO DAILY PRN 12/15/17 11/08/21 Montelukast [Singulair] 10 mg PO HS 12/15/17 11/08/21 buPROPion HCL [Wellbutrin SR] 450 mg PO HS 12/15/17 11/08/21 Albuterol Sulfate [Albuterol 2 puff INHALATION RT-Q4H PRN 11/08/21 11/08/21 Sulfate Hfa] Fluticasone/Vilanterol [Breo 1 puff INHALATION RT-DAILY 11/08/21 11/08/21 Ellipta 100-25 Mcg Inhaler] Ibuprofen [Motrin] 800 mg PO Q8H PRN 11/08/21 11/08/21 LORazepam [Ativan] 0.5 mg PO HS PRN 11/08/21 11/08/21 Levothyroxine Sodium [Synthroid] 175 mcg PO DAILY 11/08/21 11/08/21 Rosuvastatin Calcium [Crestor] 40 mg PO HS 11/08/21 11/08/21 diphenhydrAMINE [Benadryl] 25 mg PO HS 11/08/21 11/08/21 lisinopriL [Zestril] 5 mg PO HS 11/08/21 11/08/21 Previous Rx's Medication Instructions Recorded Azithromycin [Zithromax] 0 mg PO DIRECTED #6 tab 10/19/24 predniSONE 60 mg PO DAILY #30 tab 10/19/24 Allergies Allergy/AdvReac Type Severity Reaction Status Date / Time atorvastatin calcium Allergy Swelling Verified 10/19/24 04:43 [From Lipitor] lidocaine HCl Allergy SKIN Verified 10/19/24 04:43 [From Xylocaine] SWELLS UP @ SITE- AREA PURPLE FOR WEEKS ? CANCER MED Allergy Anaphylaxis Uncoded 10/19/24 04:43 Review of Systems ROS Statement: Those systems with pertinent positive or pertinent negative responses have been documented in the HPI. ROS Other: All systems not noted in ROS Statement are negative. Constitutional: Denies: fever, chills, weakness Eyes: Denies: eye pain, eye discharge, vision change ENT: Reports: ear pain, congestion. Denies: throat pain Respiratory: Reports: cough. Denies: dyspnea, hemoptysis Cardiovascular: Denies: chest pain Gastrointestinal: Denies: abdominal pain, nausea, vomiting Skin: Denies: rash Neurological: Denies: headache Past Medical History Past Medical History: Hyperlipidemia, Thyroid Disorder Additional Past Medical History / Comment(s): Other HX: Migraine, History of Any Multi-Drug Resistant Organisms: None Reported Past Surgical History: Hysterectomy, Orthopedic Surgery Additional Past Surgical History / Comment(s): 09/04/15 R rotator cuff repair. Other surgery: thyroidectomy, ovarian cyst, polyp removed from cervix. Past Anesthesia/Blood Transfusion Reactions: No Reported Reaction Past Psychological History: ADD/ADHD, Depression Smoking Status: Never smoker Past Alcohol Use History: None Reported Past Drug Use History: None Reported - Past Family History Father Family Medical History: Myocardial Infarction (SD) Additional Family Medical History / Comment(s): fathers side of family had cardiac problems Mother Family Medical History: Cancer Additional Family Medical History / Comment(s): kidney cancer General Exam Limitations: no limitations General appearance: alert, in no apparent distress Head exam: Present: atraumatic, normocephalic Eye exam: Present: normal appearance, PERRL, EOMI. Absent: scleral icterus, conjunctival injection ENT exam: Present: normal external ear exam (No mastoid tenderness), other (There is some injection of the pharynx. Uvula midline, no narrowing of the airway). Absent: TM's normal bilaterally (There is effusion and some erythema of the tympanic membrane. No erythema of the canal) Neck exam: Present: normal inspection, full ROM, lymphadenopathy. Absent: tenderness, meningismus Respiratory exam: Present: normal lung sounds bilaterally. Absent: respiratory distress, wheezes, rales, rhonchi, stridor, accessory muscle use Cardiovascular Exam: Present: regular rate, normal rhythm, normal heart sounds. Absent: systolic murmur, diastolic murmur, rubs, gallop Neurological exam: Present: alert Skin exam: Present: warm, dry, intact, normal color. Absent: rash Course Vital Signs 10/19/24 10/19/24 04:40 06:48 Temperature 97.9 F 97.6 F Pulse Rate 84 87 Respiratory 18 18 Rate Blood Pressure 135/72 132/73 O2 Sat by Pulse 95 98 Oximetry Medical Decision Making - Medical Decision Making Was pt. sent in by a medical professional or institution (, PA, JACK [employer] TENDER, urgent care, hospital, or custodial...) When possible be specific @ -[No] Did you speak to anyone other than the patient for history (EMS, parent, family, police, friend...)? What history was obtained from this source @ -[No] Did you review nursing and triage notes (agree or disagree)? Why? @ -[I reviewed and agree with nursing and triage notes] Were old charts reviewed (outside hosp., previous admission, EMS record, old EKG, old radiological studies, urgent care reports/EKG's, custodial records)? Report findings @ -[No old charts were reviewed] Differential Diagnosis (chest pain, altered mental status, abdominal pain women, abdominal pain men, vaginal bleeding, weakness, fever, dyspnea, syncope, headache, dizziness, GI bleed, back pain, seizure, CVA, palpatations, mental health, musculoskeletal)? @ -[not applicable] EKG interpreted by me (3pts min.). @ -[As above] X-rays interpreted by me (1pt min.). @ -[None done] CT interpreted by me (1pt min.). @ -[None done] U/S interpreted by me (1pt. min.). @ -[None done] What testing was considered but not performed or refused? (CT, X-rays, U/S, labs)? Why? @ -[None] What meds were considered but not given or refused? Why? @ -[None] Did you discuss the management of the patient with other professionals (professionals i.e. DrNereida, PA, JACK FRAME TENDER, lab, RT, psych nurse, social problems specialist, high lift mule operator, teacher, credit compliance officer, heel caser)? Give summary @ -[No] Was smoking cessation discussed for >3mins.? @ -[No] Was critical care preformed (if so, how long)? @ -[No] Were there social determinants of health that impacted care today? How? (Homelessness, low income, unemployed, alcoholism, drug addiction, transportation, low edu. Level, literacy, decrease access to med. care, detention, rehab)? @ -[No] Was there de-escalation of care discussed even if they declined (Discuss DNR or withdrawal of care, Hospice)? DNR status @ -[No] What co-morbidities impacted this encounter? (DM, HTN, Smoking, COPD, CAD, Cancer, CVA, ARF, Chemo, Hep., AIDS, mental health diagnosis, sleep apnea, morbid obesity)? @ -[None] Was patient admitted / discharged? Hospital course, mention meds given and route, prescriptions, significant lab abnormalities, going to OR and other pertinent info. @ -[Patient is a 68-year-old woman presenting with recurrence of upper respiratory symptoms and found to have acute otitis media. Patient will be started on treatment and discussed appropriate follow-up as well as return parameters Undiagnosed new problem with uncertain prognosis? @ -[No] Drug Therapy requiring intensive monitoring for toxicity (Heparin, Nitro, Insulin, Cardizem)? @ -[No] Were any procedures done? @ -[No] Diagnosis/symptom? @ -[Upper respiratory infection Acute otitis media Acute, or Chronic, or Acute on Chronic? @ -[Acute Uncomplicated (without systemic symptoms) or Complicated (systemic symptoms)? @ -[Uncomplicated Side effects of treatment? @ -[No] Exacerbation, Progression, or Severe Exacerbation? @ -[No] Poses a threat to life or bodily function? How? (Chest pain, [place], [place], pneumonia, PE, COPD, DKA, ARF, appy, cholecystitis, CVA, Diverticulitis, Homicidal, Suicidal, threat to staff... and all critical care pts) @ -[No] All treatments are based on ideal body weight as in ED triage - Lab Data Lab Results 10/19/24 Range/Units 05:06 Influenza Type A (PCR) Not Detected (Not Detectd) Influenza Type B (PCR) Not Detected (Not Detectd) RSV (PCR) Not Detected (Not Detectd) SARS-CoV-2 (PCR) Not Detected (Not Detectd) Disposition Clinical Impression: Otitis media Disposition: HOME SELF-CARE Condition: Good Instructions (If sedation given, give patient instructions): Ear Infection (ED) Prescriptions: predniSONE 60 mg PO DAILY #30 tab Azithromycin [Zithromax] 0 mg PO DIRECTED #6 tab Is patient prescribed a controlled substance at d/c from ED?: No Referrals: Tay Carvalho MD [Primary Care Provider] - 1-2 days
[2024-10-19 06:49] VITALS: BP 132/73; PULSE 87; TEMP 97.6
== END 2024-10-19 07:00 | disposition home or self-care (01) ==
LOC: EC 04:32
DX: J06.9 Acute upper respiratory infection, unspecified (principal); H66.91 Otitis media, unspecified, right ear
CPT/HCPCS: 87636; 99283